=== PATIENT | male | born 1945 | race Caucasian/White ===

== ENCOUNTER 2025-01-22 06:21 | Outpatient (CLI) | payer MEDICARE, OTHER, SELFPAY ==
--- OUTSIDE RECORDS SUMMARY | 2024-09-23 06:45 | XMS_ITS | Encounter Summary ---
Author Name [facility] [place] [facility] [place] Address [address] [place] [id number] Support Name Relationship Address Phone ROLDANROELPEMA Next of Kin [address] [place] [address] ROEL ROLDAN Emergency Contact [address] [place] [address] Insurance Providers: All historical and current Section Date Range: From patient's date of to the date document was created. This section includes the names of all active insurance providers for the patient. Insurance Provider Type of Coverage Plan Name Start of Policy Coverage End of Policy Coverage Group Number Member ID Insurance Provider's Telephone Number Policy Betacnourt's Name Patient's Relationship to Policy Betancourt MEDICARE (WNR) MEDICARE (M) PART A Aug 05, 2010 PART A [id number] [phone] Senthil ROLDAN EOR[place] PATIENT MEDICARE (WNR) MEDICARE (M) PART B Aug 05, 2010 PART B [id number] [phone] Senthil ROLDAN EORG PATIENT MEDICARE (WNR) MEDICARE (M) PART A Aug 05, 2010 PART A [id number] [phone] Senthil ROLDAN EOR[place] PATIENT MEDICARE (WNR) MEDICARE (M) PART B Aug 05, 2010 PART B [id number] [phone] Senthil ROLDAN PATIENT Selected Encounter This section includes the information on record at [place] for the Encounter. Date/Time Encounter Type Encounter Description Reason Provider Source Sep 23, 2024 11:45 AM HEARING AID FITTING/CHECKING AUDIOLOGY ICD-10-CM Z01.118 Encntr for exam of ears and hearing w oth abnormal findings BERT TEJEDA [facility] Encounter Template Text not used by [place] Assessments - Encounter Diagnoses This section includes the primary and secondary diagnoses documented for the Encounter. Date/Time Primary/Secondary Diagnosis Diagnosis Name Provider Source Sep 23, 2024 12:53 PM PRIMARY Encntr for exam of ears and hearing w oth abnormal findings BERT TEJEDA [facility] Sep 23, 2024 12:53 PM SECONDARY Encounter for fitting and adjustment of hearing aid BERT TEJEDA [facility] Sep 23, 2024 12:53 PM SECONDARY Sensorineural hearing loss, bilateral BERT TEJEDA [facility] Sep 23, 2024 12:53 PM SECONDARY Tinnitus, bilateral [facility] Plan of Treatment: Future Appointments (+ 6 months) and Future Tests (+/- 45 days) The Plan of Treatment section includes future care activities for the patient from all [place] [facility] This section includes future appointments and future orders which are active, pending or scheduled. Future Appointments This section includes appointments that were scheduled to occur 6 months from the date of the Encounter, up to a maximum of 20 appointments. The data comes from all [place] treatment facilities. Appointment Date/Time Appointment Type Appointme nt Facility Name Oct 19, 2024 10:45 AM AMBULATORY - SURGERY [facility] Social History: Smoking Status (Most current) and Tobacco Use (All prior to encounter date) This section includes the most current, and the historical, smoking and tobacco- related health factors from the [place] facility where the Encounter took place. Current Smoking Status This section includes the most current smoking, or tobacco-related health factor, from the [place] facility where the Encounter took place. Date/Time Current Smoking Status Comment Facil ity May 27, 2014 09:10 AM FORMER TOBACCO USER 7Y OR GREATE R [facility] Encounter Notes: All associated encounter notes This section contains the clinical notes associated to the Encounter. Date/Time Encounter Note(s) Provider Source Sep 23, 2024 12:57 PM SUICIDE PREVENTION RISK ASSESSMENT SCREENING NOTE: LOCAL TITLE: [place] SCREENING NOTE STANDARD TITLE: SUICIDE PREVENTION RISK ASSESSMENT SCREENING NOT DATE OF NOTE: SEP 23, 2024@12:57 ENTRY DATE: SEP 23, 2024@12:57:30 AUTHOR: BERT TEJEDA EXP COSIGNER: URGENCY: STATUS: COMPLETED C-SSRS Screening Charles-Suicide Severity Rating Scale (C-SSRS Screener) 1. Over the past month, have you wished you were or wished you could go to sleep and not wake up? No 2. Over the past month, have you had any actual thoughts of killing yourself? No 3. Over the past month, have you been thinking about how you might do this? Response not required due to responses to other questions. 4. Over the past month, have you had these thoughts and had some intention of acting on them? Response not required due to responses to other questions. 5. Over the past month, have you started to work out or worked out the details of how to kill yourself? Response not required due to responses to other questions. 6. If yes, at any time in the past month did you intend to carry out this plan? Response not required due to responses to other questions. 7. In your lifetime, have you ever done anything, started to do anything, or prepared to do anything to end your life (for example, collected pills, obtained a gun, gave away valuables, went to the roof but didn't jump)? No 8. If YES, was this within the past 3 months? Response not required due to responses to other questions. /linda/ JUAN M BASSETT STAFF FOOT AND ANKLE SURGEON Signed: 09/23/2024 12:57 BERT TEJEDA [facility] Sep 23, 2024 07:04 AM AUDIOLOGY NOTE: LOCAL TITLE: AUDIOLOGY CLINIC NOTE STANDARD TITLE: AUDIOLOGY NOTE DATE OF NOTE: SEP 23, 2024@07:04 ENTRY DATE: SEP 23, 2024@07:04:03 AUTHOR: BERT TEJEDA EXP COSIGNER: URGENCY: STATUS: COMPLETED SUBJECT: HAE + Service AUDIOLOGY CLINIC NOTE Has ADDENDA DIAGNOSIS: Encounter for examination of ears and hearing Bilateral Sensorineural Hearing Loss Bilateral Tinnitus REASON FOR VISIT: THERAPEUTIC:HEARING AID EVALUATION, 60 minutes: was seen in the clinic today for a hearing evaluation, tympanometry, hearing aid repair/modification x4 and hearing aid programming. The was last seen in this clinic on 01/08/2022. The is Service Connected for Tinnitus. The is not Service Connected for Hearing Loss. Peck was unaccompanied. The wears the following hearing aids: HEARING AIDS (Right/Left) fit : 01/08/2022 Make: Sarah Model: Audeo P90-RT ONEL Serial Numbers R/L: [id number] / [id number] Rolling Chair Pusher/Slim Tube Size: 2S Dome/Earmold: medium open domes HEARING AIDS - BACK UP fit: 07/12/2014 PHONAK AUDEO Q90-312 ONEL R [id number] [place] PHONAK AUDEO Q90-312 ONEL L [id number] [place] HISTORY: - Peck reports his left P90-RT device won't charge. His right P90 device is weak. - arrived wearing his Q90-312 ONEL devices and reports they are both weak. PROCEDURES: OTOSCOPY Bilaterally: Free of excessive cerumen. Normal appearing TM's and canals. TYMPANOMETRY: RIGHT EAR: Type: A Pressure: Normal Compliance: Normal Volume: Normal LEFT EAR: Type: A Pressure: Normal Compliance: Normal Volume: Normal AUDIOMETRICS: Air conduction, Bone conduction, Speech testing Transducer: Circumaural headphones Reliability: good RIGHT EAR (Hz) 250 046 078 8676 1500 2000 3000 4000 6000 8000 Air: see Audiogram display under Tools->Audiology->ROES or see DAINA database. Bone: see Audiogram display under Tools->Audiology->ROES or see DAINA database. LEFT EAR (Hz) 250 353 262 3351 1500 2000 3000 4000 6000 8000 Air: see Audiogram display under Tools->Audiology->ROES or see DAINA database. Bone: see Audiogram display under Tools->Audiology->ROES or see DAINA database. - All thresholds are in dB HL * = Masked Threshold SPEECH RECOGNITION THRESHOLD (SRT): Spondees Right: 40 dB HL Left: 45 dB HL Pure tone results were consistent with speech information receptionist thresholds. WORD RECOGNITION: Recorded/NU-6 word list Right Ear: 92% Level: 80* dB Left Ear: 80% Level: 85* dB Left Ear: 80% Level: 80* dB SUMMARY: RIGHT EAR: Mild sloping to profound sensorineural hearing loss from 250-8000 Hz with normal speech comprehension. Tympanometry reflects normal ear canal volume and tympanic membrane mobility. LEFT EAR: Normal hearing at 250 Hz, sloping from a mild to profound sensorineural hearing loss from 500-8000 Hz with mildly impaired speech comprehension. Tympanometry reflects normal ear canal volume and tympanic membrane mobility. HEARING AID REPAIR/MODIFICATION (x2): (Serial #: [id number] / [id number]) - Both hearing aids are cleaned and checked today. - Right aid weak, left aid will not charge. It blinks green then red when placed in the installation service representative. - Both receivers were replaced. Medium open domes were replaced with small vented domes. - The left aid would not connect to the software. - Both aids were sent in for repair to have all the components replaced. HEARING AID REPAIR/MODIFICATION (x2): Serial #: ([id number]) - Both hearing aids are cleaned and checked today. - Both aids are weak. Both receivers were replaced. - Open domes were replaced with closed domes. - Microphone ports were cleaned out. HEARING AID REPROGRAMMING: (Serial #: [id number]) - Both hearing aids are connected to the fitting software today. - Acoustic parameters verified. - Hearing aids are reprogrammed based on prescriptive targets derived from the results of today's hearing evaluation. - Feedback calibration is ran. - Peck reports the hearing aids sound clear and comfortable after these changes. PLAN: - Peck will be scheduled for a 60-minute hearing aid fitting appointment to fit repaired aids, re-program, and run real ear measures. - Regular follow up recommended to monitor for changes in hearing, or as medically indicated. - is in agreement with this plan. Tech note: Hold repaired hearing aids in clinic for 's scheduled appointment. /linda/ JUAN M BASSETT STAFF FOOT AND ANKLE SURGEON Signed: 09/23/2024 12:53 10/02/2024 ADDENDUM STATUS: COMPLETED HOLDING REPAIRED HEARING AIDS ON ABC FOR APPT 10/19 /linda/ DEBRA [facility] TELECOMMUNICATIONS SUPPORT Signed: 10/02/2024 11:02 /linda/ Jason HILLMAN, [facility]-A CLINICAL/COCHLEAR IMPLANT FOOT AND ANKLE SURGEON Cosigned: 10/02/2024 17:46 BERT TEJEDA [facility]
--- OUTSIDE RECORDS SUMMARY | 2024-10-19 05:45 | XMS_ITS | Encounter Summary ---
Author Name [facility] [place] [place] [facility] [place] Address [address] [place] [address] Support Name Relationship Address Phone ROLDANROELPEMA Next of Kin [address] [place] [address] JAMAR ROEL SANTOS Emergency Contact [address] [place] [address] Insurance Providers: All historical and current Section Date Range: From patient's date of to the date document was created. This section includes the names of all active insurance providers for the patient. Insurance Provider Type of Coverage Plan Name Start of Policy Coverage End of Policy Coverage Group Number Member ID Insurance Provider's Telephone Number Policy Betancourt's Name Patient's Relationship to Policy Betancourt MEDICARE (WNR) MEDICARE (M) PART A Aug 05, 2010 PART A [id number] [phone] Senthil ROLDAN EOR[place] PATIENT MEDICARE (WNR) MEDICARE (M) PART B Aug 05, 2010 PART B [id number] [phone] Senthil ROLDAN [place] PATIENT MEDICARE (WNR) MEDICARE (M) PART A Aug 05, 2010 PART A [id number] [phone] Senthil ROLDAN [place] PATIENT MEDICARE (WNR) MEDICARE (M) PART B Aug 05, 2010 PART B [id number] Senthil ROLDAN EORSenthil PATIENT Selected Encounter This section includes the information on record at [place] for the Encounter. Date/Time Encounter Type Encounter Description Reason Provider Source Oct 19, 2024 10:45 AM CONFORMITY EVALUATION AUDIOLOGY ICD-10-CM Z46.1 Encounter for fitting and adjustment of hearing aid BERT TEJEDA Encounter Template Text not used by [place] Assessments - Encounter Diagnoses This section includes the primary and secondary diagnoses documented for the Encounter. Date/Time Primary/Secondary Diagnosis Diagnosis Name Provider Source Oct 19, 2024 11:02 AM PRIMARY Encounter for fitting and adjustment of hearing aid BERT TEJEDA [facility] Oct 19, 2024 11:02 AM SECONDARY Sensorineural hearing loss, bilateral BERT TEJEDA [facility] Oct 19, 2024 11:02 AM SECONDARY Tinnitus, bilateral BERT TEJEDA [facility] Social History: Smoking Status (Most current) and Tobacco Use (All prior to encounter date) This section includes the most current, and the historical, smoking and tobacco- related health factors from the [place] facility where the Encounter took place. Current Smoking Status This section includes the most current smoking, or tobacco-related health factor, from the [place] facility where the Encounter took place. Date/Time Current Smoking Status Comment Facil ity May 27, 2014 09:10 AM FORMER TOBACCO USER 7Y OR GREATE R [facility] Encounter Notes: All associated encounter notes This section contains the clinical notes associated to the Encounter. Date/Time Encounter Note(s) Provider Source Oct 19, 2024 07:03 AM AUDIOLOGY NOTE: LOCAL TITLE: AUDIOLOGY CLINIC NOTE STANDARD TITLE: AUDIOLOGY NOTE DATE OF NOTE: OCT 19, 2024@07:03 ENTRY DATE: OCT 19, 2024@07:03:53 AUTHOR: BERT TEJEDA EXP COSIGNER: URGENCY: STATUS: COMPLETED SUBJECT: LEE Service DIAGNOSIS: Encounter for fitting and adjustment of hearing aid Sensorineural Hearing Loss, Bilateral Tinnitus, Bilateral REASON FOR VISIT: Hearing aid check/2 ears, hearing aid programming, and conformity evaluation. The was last seen in this clinic on 09/23/2024. The is Service Connected for Tinnitus. The is not Service Connected for Hearing Loss. [place] was unaccompanied. The wears the following hearing aids: HEARING AIDS (Right/Left) fit : 01/08/2022 Make: Phonak Model: Audeo P90-RT ONEL Serial Numbers R/L: [id number] / [id number] Media Traffic Manager/Slim Tube Size: 2S Dome/Earmold: Small vented domes HEARING AIDS - BACK UP fit: 07/12/2014 PHONAK AUDEO Q90-312 ONEL R [id number] [place] DEEPTHI MANDUJANO Q90-312 ONEL L [id number] [place] Concerns reported today by : Right aid SN: reprogram P90-RT devices following repair Left aid SN: reprogram P90-RT devices following repair PROCEDURES: OTOSCOPY Bilaterally: Free of excessive cerumen. Normal appearing TM's and canals. Hearing Aid check, 2 ears: (Serial #: [id number] / [id number]) - Biologic listening check revealed both hearing aids are working normally following MFR repair. HEARING AID REPROGRAMMING: (Serial #: [id number] / [id number]) - Both hearing aids are connected to the fitting software today. - Firmware updated, AU. - Hearing aids are reprogrammed based on prescriptive targets derived from the results of 's latest hearing examination. today's hearing evaluation. - Feedback calibration is ran. - reports the hearing aids sound clear and comfortable after these changes. - Real-ear measures (conformity evaluation) were completed (NAL-NL2). Gain and output were adjusted to ensure audibility and comfort. Loudness intolerance was measured using a 90 dB MPO tone sweep and the patient was able to tolerate the output of the hearing device(s). Veterans subjective impressions were considered while adjusting the hearing aids. Balance, comfort, and localization were verified. PLAN: - Regular follow up recommended to monitor for changes in hearing, or as medically indicated. - RTC for servicing of amplification as needed. Patient is in agreement with this plan. /linda/ JUAN M BASSETT STAFF INTERN ARCHITECT Signed: 10/19/2024 11:02 BERT TEJEDA [facility]
--- OUTSIDE RECORDS SUMMARY | 2025-01-22 06:54 | XMS_ITS | Continuity of Care Document ---
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 facilities. It does not include entries that were removed or entered in error. Problem Status Onset Date Problem Type Date of Resolution Comments Source Carcinoma of prostate Active Condition [facility] Diabetes mellitus Active Condition [facility] Essential hypertension Active Condition [facility] Tinnitus Active Condition [facility] Diagnosis: ICD-10-CM Z46.1 Encounter for fitting and adjustment of hearing aid Active Diagnosis [facility] Diagnosis: ICD-10-CM Z01.118 Encntr for exam of ears and hearing w oth abnormal findings Active Diagnosis [facility] Medications Combined list of outpatient medications from Department [facility] and [facility] facilities.Medications provided include 1) outpatient medications from the last 15 months, and 2) patient-reported medications. Medication Details Route Status Patient Instructions Prescription Expires Prescription Number Last Dispense Date Ordering Provider Order Date Order Qty Source AMLODIPINE BESYLATE (AMLODIPINE BESYLATE), 10 MG, TABLET, ORAL, [employer], 1000 ea. BOTTLE Active [id number] 2023 90 Pharmac y Data Transac tion Service Facilit y AMLODIPINE BESYLATE 10MG TAB TAKE ONE TABLET BY MOUTH EVERY DAY ORAL ACTIVE MILAD LEMUS 2013 [facility] ASPIRIN 81MG TAB,EC TAKE ONE TABLET BY MOUTH EVERY DAY ORAL ACTIVE MILAD LEMUS 2013 [facility] ATENOLOL 25MG TAB TAKE ONE TABLET BY MOUTH EVERY DAY ORAL ACTIVE MILAD LEMUS 2013 [facility] FISH OIL 1000MG (500MG DHA/EPA) CAP,ORAL TAKE 1 CAPSULE BY MOUTH EVERY DAY ORAL ACTIVE MILAD LEMUS 2013 [facility] HYDROCHLORO THIAZIDE 25MG TAB TAKE ONE-HALF TABLET BY MOUTH TWICE A DAY ORAL ACTIVE MILAD LEMUS 2013 [facility] METFORMIN HCL 1000MG TAB TAKE ONE-HALF TABLET BY MOUTH EVERY DAY ORAL ACTIVE MILAD LEMUS 2013 [facility] MULTIVITAMI NS CAP/TAB TAKE ONE TABLET BY MOUTH EVERY DAY ORAL ACTIVE MILAD LEMUS 2013 [facility] QUINAPRIL HCL 40MG TAB TAKE ONE TABLET BY MOUTH EVERY DAY ORAL ACTIVE MILAD LEMUS 2013 [facility] Allergies, Adverse Reactions, Alerts Combined list of allergies from Department [facility] and [facility] facilities. It does not include entries that were removed or entered in error. Substance Category Reaction Severity Reaction type Status Date Reported Comments Source AMOXICILLIN Propensity to adverse reactions to drug (finding) Itching active 4 [employer] PENICILLINS, AMINO DERIVATIVES Drug allergy (disorder) Pruritus active 4 [facility] Immunizations Combined list of available immunizations from the Department of [facility] and [facility] facilities. Immunization Series Date Given Administered By Site Reaction Lot Number CVX Code Drug Piccolo Mechanic Status Comments Source COVID-19 (PFIZER), MRNA, LNP-S, PF, 30 MCG/0.3 ML DOSE 3 2020 208 complet ed PFR; [id number]; 1 [facility] INFLUENZA, INJECTABLE, QUADRIVALENT, PRESERVATIVE FREE 2020 150 complet ed [facility] COVID-19 (PFIZER), MRNA, LNP-S, PF, 30 MCG/0.3 ML DOSE 2 2020 208 complet ed PFR; [id number]; 1 [facility] COVID-19 (PFIZER), MRNA, LNP-S, PF, 30 MCG/0.3 ML DOSE 1 2020 208 complet ed PFR; [id number]; 1 [facility] influenza, high-dose, quadrivalent 2019 [place], () Not Given influenza , high-dose , quadrival ent [facility] influenza, recombinant, quadrivalent, injectable, preservative free 2018 [place] () Not Given influenza , recombina nt, quadrival ent,injec table, preservat jessi free [facility] INFLUENZA, HIGH DOSE SEASONAL 2015 135 complet ed [facility] INFLUENZA, SEASONAL, INJECTABLE, PRESERVATIVE FREE 2014 140 complet ed [facility] anthrax vaccine 5 2003 Unknown, Provider [id number] [employer] ([facility]) complet ed anthrax vaccine [facility] influenza virus vaccine, whole virus 1 2002 Unknown, Provider [id number] Sanofi Pasteur ([facility]) complet ed influenza virus vaccine, whole virus [facility] tuberculin skin test; purified protein derivative solution, intradermal 1 2002 Unknown, Provider [id number] Sanofi Pasteur ([facility]) complet tuberculi n skin test; purified protein derivativ e solution, intraderm al [facility] anthrax vaccine 4 2002 Unknown, Provider [id number] [employer] ([facility]) complet ed anthrax vaccine DoD typhoid vaccine, parenteral, other than acetone-kille d, dried 1 2002 Unknown, Provider [id number] Sanofi Pasteur ([facility]) complet ed typhoid vaccine, parentera l, other than acetone-k illed, dried DoD hepatitis B vaccine, adult dosage 3 2002 Unknown, Provider [id number] Merck (MSD) complet ed hepatitis B vaccine, adult dosage DoD anthrax vaccine 3 2002 Unknown, Provider [id number] [employer] ([facility]) complet ed anthrax vaccine DoD anthrax vaccine 2 2002 Unknown, Provider [id number] [facility] [employer] ([facility]) complet ed anthrax vaccine DoD vaccinia (smallpox) vaccine, diluted 1 2002 Unknown, Provider [id number] Destinee ([facility]) complet ed vaccinia (smallpox ) vaccine, diluted DoD anthrax vaccine 1 2002 Unknown, Provider [id number] [employer] ([facility]) complet ed anthrax vaccine [facility] hepatitis B vaccine, adult dosage 2 2001 Unknown, Provider [id number] Merck (MSD) complet ed hepatitis B vaccine, adult dosage [facility] influenza virus vaccine, whole virus 1 2001 Unknown, Provider [id number] [employer] ([facility]) complet ed influenza virus vaccine, whole virus DoD tuberculin skin test; purified protein derivative solution, intradermal 1 2001 Unknown, Provider [id number] Sanofi Pasteur ([facility]) complet ed tuberculi n skin test; purified protein derivativ e solution, intraderm al DoD hepatitis B vaccine, adult dosage 1 2001 Unknown, Provider [id number] Merck (MSD) complet ed hepatitis B vaccine, adult dosage DoD tuberculin skin test; purified protein derivative solution, intradermal 1 2001 Unknown, Provider [id number] Sanofi Pasteur ([facility]) complet ed tuberculi n skin test; purified protein derivativ e solution, intraderm al DoD meningococcal polysaccharid e vaccine (MPSV4) 1 2001 Unknown, Provider [id number] Benito (CON) complet ed meningoco ccal polysacch aride vaccine (MPSV4) DoD influenza virus vaccine, whole virus 1 2000 Unknown, Provider [id number] 16 Sanofi Pasteur ([facility]) complet ed influenza virus vaccine, whole virus DoD tuberculin skin test; purified protein derivative solution, intradermal 1 2000 Unknown, Provider [id number] 96 [place] (CON) complet ed tuberculi n skin test; purified protein derivativ e solution, intraderm al DoD typhoid vaccine, parenteral, other than acetone-kille d, dried 1 2000 Unknown, Provider [id number] Sanofi Pasteur ([facility]) complet ed typhoid vaccine, parentera l, other than acetone-k illed, dried DoD typhoid Vi capsular polysaccharid e vaccine 1 2000 Unknown, Provider [id number] () complet ed typhoid Vi capsular polysacch aride vaccine DoD influenza virus vaccine, whole virus 1 2000 Unknown, Provider [id number] 16 [place] (JANIE) complet ed influenza virus vaccine, whole virus DoD yellow fever vaccine 1 1999 Unknown, Provider [id number] Sanofi Pasteur ([facility]) complet ed yellow fever vaccine DoD hepatitis A vaccine, adult dosage 2 1999 Unknown, Provider [id number] Merck (MSD) complet ed hepatitis A vaccine, adult dosage DoD influenza virus vaccine, whole virus 1 1998 Unknown, Provider 16 Benito (CON) complet ed influenza virus vaccine, whole virus DoD hepatitis A vaccine, adult dosage 1 1997 Unknown, Provider [id number] Merck (MSD) complet ed hepatitis A vaccine, adult dosage DoD influenza virus vaccine, whole virus 1 1997 Unknown, Provider [id number] 16 Benito (CON) complet ed influenza virus vaccine, whole virus DoD tetanus and diphtheria toxoids, adsorbed, preservative free, for adult use (2 Lf of tetanus toxoid and 2 Lf of diphtheria toxoid) 1 1997 Unknown, Provider [id number] Sanofi Pasteur ([facility]) complet ed tetanus and diphtheri a toxoids, adsorbed, preservat jessi free, for adult use (2 Lf of tetanus toxoid and 2 Lf of diphtheri a toxoid) DoD influenza virus vaccine, whole virus 1 1996 Unknown, Provider [id number] 16 Benito (CON) complet ed influenza virus vaccine, whole virus DoD typhoid vaccine, live, oral 1 1994 Unknown, Provider [id number] Benito (CON) complet ed typhoid vaccine, live, oral DoD yellow fever vaccine 1 1989 Unknown, Provider [id number] 37 Benito (CON) complet ed yellow fever vaccine DoD tetanus and diphtheria toxoids, adsorbed, preservative free, for adult use (2 Lf of tetanus toxoid and 2 Lf of diphtheria toxoid) 1 1987 Unknown, Provider 09 Unknown (UNK) complet ed tetanus and diphtheri a toxoids, adsorbed, preservat jessi free, for adult use (2 Lf of tetanus toxoid and 2 Lf of diphtheri a toxoid) DoD trivalent poliovirus vaccine, live, oral 1 1965 Unknown, Provider 02 Unknown (UNK) complet ed trivalent polioviru s vaccine, live, oral DoD Encounters Combined list of: 1) Encounters from Department of Veterans Affairs facilities going backup to the last 18 months, not all VA inpatient encounters are included; 2) Encounters from the Department of Defense facilities going backup to 280 months. Location Location Details Encounter Type Encounter Number Reason For Visit Attending Provider ADM Date DC Date Status Disposition Source [place] [facility] HEAR[facility] FITTING/CH ECKING [id number] Diagnos is: ICD-10- CM Z01.118 Encntr for exam of ears and hearing w oth abnorma l finding s LANG,RENUKA JASPREET VELEZ 09/23 [facility] [place] [facility] CONFORMITY EVALUATION [id number] Diagnos is: ICD-10- CM Z46.1 Encount er for fitting and adjustm ent of hearing aid RENUKA TEJEDA JASPREET VELEZ 10/19 [facility] Social History Combined list of available smoking, tobacco, and other social history from Department of Defense and Veterans Affairs facilities. Social History Type Response Date Comment Sourc e Tobacco smoking status NHIS FORMER TOBACCO USER 7Y OR GREATER 05/27/2014 [facility] This section is an empty social history section. DoD
--- OUTSIDE RECORDS SUMMARY | 2025-01-22 06:54 | XMS_ITS | Continuity of Care Document ---
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 It does not include entries that were removed or entered in error. Problem Status Onset Date Problem Type Date of Resolution Comments Source Carcinoma of prostate Active Condition [facility] Diabetes mellitus [facility] Ess[facility] hypertension Active Condition [facility] Tinnitus Active Condition [facility] Diagnosis: ICD-10-CM Z46.1 Encounter for fitting and adjustment of hearing aid Active Diagnosis [facility] Diagnosis: ICD-10-CM Z01.118 Encntr for exam of ears and hearing w oth abnormal findings Active Diagnosis [facility] Medications Combined list of outpatient medications from Department [facility] and [facility] facilities.Medications provided include 1) outpatient medications from the last 15 months, and 2) patient-reported medications. Medication Details Route Status Patient Instructions Prescription Expires Prescription Number Last Dispense Date Ordering Provider Order Date Order Qty Source AMLODIPINE BESYLATE (AMLODIPINE BESYLATE), 10 MG, TABLET, ORAL, [employer], 1000 ea. BOTTLE Active [id number] 4 2023 90 Pharmac y Data Transac tion Service Facilit y AMLODIPINE BESYLATE 10MG TAB TAKE ONE TABLET BY MOUTH EVERY DAY ORAL ACTIVE MILAD LEMUS 2013 [facility] ASPIRIN 81MG TAB,EC TAKE ONE TABLET BY MOUTH EVERY DAY ORAL ACTIVE MILAD LEMUS 2013 [facility] ATENOLOL 25MG TAB TAKE ONE TABLET BY MOUTH EVERY DAY ORAL ACTIVE MILAD LEMUS 2013 [facility] FISH OIL 1000MG (500MG DHA/EPA) CAP,ORAL TAKE 1 CAPSULE BY MOUTH EVERY DAY ORAL ACTIVE MILAD LEMUS 2013 [facility] HYDROCHLORO THIAZIDE 25MG TAB TAKE ONE-HALF TABLET BY MOUTH TWICE A DAY ORAL ACTIVE MILAD LEMUS 2013 [facility] METFORMIN HCL 1000MG TAB TAKE ONE-HALF TABLET BY MOUTH EVERY DAY ORAL ACTIVE MILAD LEMUS 2013 [facility] MULTIVITAMI NS CAP/TAB TAKE ONE TABLET BY MOUTH EVERY DAY ORAL ACTIVE MILAD LEMUS 2013 [facility] QUINAPRIL HCL 40MG TAB TAKE ONE TABLET BY MOUTH EVERY DAY ORAL ACTIVE MILAD LEMUS 2013 [facility] Allergies, Adverse Reactions, Alerts Combined list of allergies from Department of [facility] and [facility] facilities. It does not include entries that were removed or entered in error. Substance Category Reaction Severity Reaction type Status Date Reported Comments Source AMOXICILLIN Propensity to adverse reactions to drug (finding) Itching active 4 [facility] PENICILLINS, AMINO DERIVATIVES Drug allergy (disorder) Pruritus active 4 [facility] Immunizations Combined list of available immunizations from the Department of [facility] and [facility] facilities. Immunization Series Date Given Administered By Site Reaction Lot Number CVX Code Drug Spectroscopist Status Comments Source COVID-19 (PFIZER), MRNA, LNP-S, PF, 30 MCG/0.3 ML DOSE 3 2020 208 complet ed PFR; [id number]; 1 [facility] INFLUENZA, INJECTABLE, QUADRIVALENT, PRESERVATIVE FREE 2020 150 complet ed [facility] COVID-19 (PFIZER), MRNA, LNP-S, PF, 30 MCG/0.3 ML DOSE 2 2020 208 complet ed PFR; [id number]; 1 [facility] COVID-19 (PFIZER), MRNA, LNP-S, PF, 30 MCG/0.3 ML DOSE 1 2020 208 complet ed PFR; [id number]; 1 [facility] influenza, high-dose, quadrivalent 2019 WIL[place], () Not Given influenza , high-dose , quadrival ent [facility] influenza, recombinant, quadrivalent, injectable, preservative free 2018 [place] () Not Given influenza , recombina nt, quadrival ent,injec table, preservat jessi free [facility] INFLUENZA, HIGH DOSE SEASONAL 2015 135 complet ed [facility] INFLUENZA, SEASONAL, INJECTABLE, PRESERVATIVE FREE 2014 140 complet ed [facility] anthrax vaccine 5 2003 Unknown, Provider [id number] [employer] ([facility]) complet ed anthrax vaccine [facility] influenza virus vaccine, whole virus 1 2002 Unknown, Provider [id number] Sanofi Pasteur ([facility]) complet ed influenza virus vaccine, whole virus [facility] tuberculin skin test; purified protein derivative solution, intradermal 1 2002 Unknown, Provider [id number] Sanofi Pasteur ([facility]) complet tuberculi n skin test; purified protein derivativ e solution, intraderm al [facility] anthrax vaccine 4 2002 Unknown, Provider [id number] [employer] ([facility]) complet ed anthrax vaccine DoD typhoid vaccine, parenteral, other than acetone-kille d, dried 1 2002 Unknown, Provider [id number] Sanofi Pasteur ([facility]) complet ed typhoid vaccine, parentera l, other than acetone-k illed, dried DoD hepatitis B vaccine, adult dosage 3 2002 Unknown, Provider [id number] Merck (MSD) complet ed hepatitis B vaccine, adult dosage DoD anthrax vaccine 3 2002 Unknown, Provider [id number] [employer] ([facility]) complet ed anthrax vaccine DoD anthrax vaccine 2 2002 Unknown, Provider [id number] [facility] [employer] ([facility]) complet ed anthrax vaccine DoD vaccinia (smallpox) vaccine, diluted 1 2002 Unknown, Provider [id number] [employer] (WAL) complet ed vaccinia (smallpox ) vaccine, diluted DoD anthrax vaccine 1 2002 Unknown, Provider [id number] [employer] ([facility]) complet ed anthrax vaccine [facility] hepatitis B vaccine, adult dosage 2 2001 Unknown, Provider [id number] Merck (MSD) complet ed hepatitis B vaccine, adult dosage [facility] influenza virus vaccine, whole virus 1 2001 Unknown, Provider [id number] [employer] ([facility]) complet ed influenza virus vaccine, whole virus DoD tuberculin skin test; purified protein derivative solution, intradermal 1 2001 Unknown, Provider [id number] Sanofi Pasteur ([facility]) complet ed tuberculi n skin test; purified protein derivativ e solution, intraderm al DoD hepatitis B vaccine, adult dosage 1 2001 Unknown, Provider [id number] Merck (MSD) complet ed hepatitis B vaccine, adult dosage DoD tuberculin skin test; purified protein derivative solution, intradermal 1 2001 Unknown, Provider [id number] 96 Sanofi Pasteur ([facility]) complet ed tuberculi n skin test; purified protein derivativ e solution, intraderm al DoD meningococcal polysaccharid e vaccine (MPSV4) 1 2001 Unknown, Provider [id number] Benito (CON) complet ed meningoco ccal polysacch aride vaccine (MPSV4) DoD influenza virus vaccine, whole virus 1 2000 Unknown, Provider [id number] 16 Sanofi Pasteur ([facility]) complet ed influenza virus vaccine, whole virus DoD tuberculin skin test; purified protein derivative solution, intradermal 1 2000 Unknown, Provider [id number] 96 [place] (CON) complet ed tuberculi n skin test; purified protein derivativ e solution, intraderm al DoD typhoid vaccine, parenteral, other than acetone-kille d, dried 1 2000 Unknown, Provider [id number] Sanofi Pasteur ([facility]) complet ed typhoid vaccine, parentera l, other than acetone-k illed, dried DoD typhoid Vi capsular polysaccharid e vaccine 1 2000 Unknown, Provider [id number] () complet ed typhoid Vi capsular polysacch aride vaccine DoD influenza virus vaccine, whole virus 1 2000 Unknown, Provider [id number] 16 [place] (JANIE) complet ed influenza virus vaccine, whole virus DoD yellow fever vaccine 1 1999 Unknown, Provider [id number] Sanofi Pasteur ([facility]) complet ed yellow fever vaccine DoD [...] vaccine, whole virus 1 1997 Unknown, Provider [id number] 16 Ben[place] (CON) complet ed influenza virus vaccine, whole virus DoD tetanus and diphtheria toxoids, adsorbed, preservative free, for adult use (2 Lf of tetanus toxoid and 2 Lf of diphtheria toxoid) 1 1997 Unknown, Provider [id number] Sanofi Pasteur ([facility]) complet ed tetanus and diphtheri a toxoids, adsorbed, preservat jessi free, for adult use (2 Lf of tetanus toxoid and 2 Lf of diphtheri a toxoid) DoD influenza virus vaccine, whole virus 1 1996 Unknown, Provider [id number] Benito (CON) complet ed influenza virus vaccine, whole virus DoD typhoid vaccine, live, oral 1 1994 Unknown, Provider [id number] Benito (CON) complet ed typhoid vaccine, live, oral DoD yellow fever vaccine 1 1989 Unknown, Provider [id number] [place] (CON) complet ed yellow fever [...] [facility] [id number] Diagnos is: ICD-10- CM Z01.118 Encntr for exam of ears and hearing w oth abnorma l finding s LANG,RENUKA JASPREET VELEZ 09/23 [facility] [place] [facility] CONFORMITY EVALUATION [id number] Diagnos is: ICD-10- CM Z46.1 Encount er for fitting and adjustm ent of hearing aid RENUKA TEJEDA JASPREET VELEZ 10/19 [facility] Social History Combined list of available smoking, tobacco, and other social history from Department of Defense and Veterans Affairs facilities. Social History Type Response Date Comment Sourc e Tobacco smoking status NHIS FORMER TOBACCO USER 7Y OR GREATER 05/27/2014 [facility] This section is an empty social history section. DoD
--- OUTSIDE RECORDS SUMMARY | 2025-01-22 07:31 | XMS_ITS | Data Portability ---
Author Organization [facility], [facility] Address [address] [place] [address] Care Team Providers [facility] Assistant Director Name Role Phone JERSEY CONTRERAS Primary Care Provider [phone] Assessment Encounter Date Assessment Date Assessment LastModified by Organization Details LastModified Time 02/01/2020 02/01/2020 [id number] 6 cancer of the prostate on observation. He is doing well. Recent MRI low risk. PSA rising slightly - will follow. antonia Not available 03/01/2020 06:32:00 07/14/2020 07/14/2020 cT1c Jin 6 cancer of the prostate on observation. Stable recheck 6 months. antonia Not available 07/14/2020 11:24:20 01/12/2021 01/12/2021 He has a low-grade low risk cancer of the prostate that is stable on observation. PSA is stable here today. I communicated with him by phone about that test result. We will see him in 6 months. antonia Not available 01/12/2021 17:57:53 07/13/2021 07/13/2021 Mr. Boyle has a clinical T1c cancer of the prostate for which he has been on active surveillance for approximately 8 years since 2012. His PSA today is 6.96. I did call and tell his that. He will follow-up in [place] with my partner Dr. Alvarez in 6 months. He is very comfortable with continuing to follow this. Most recent MRI January 2020 showed 100 cc gland, PI-RADS 2. Reviewed. 07/23/2013 L) PROSTATE, LEFT LATERAL BASE, NEEDLE BIOPSY 1. Adenocarcinoma, Jin Grade 3 + Jin Grade 3= 6 2. Total surface area involved: 20% 3. Number of needle biopsy cores involved 1 of 1 4. Perineural invasion: absent 06/14/2015 C) PROSTATE, RIGHT MEDIAL MID, NEEDLE BIOPSY 1. Adenocarcinoma, Jin score 6 (3+3); see note 2. Total surface area involved: 5% 3. Number of needle biopsy cores involved 1 of 1 4. Perineural invasion: absent L) PROSTATE, LEFT LATERAL BASE, NEEDLE BIOPSY 1. Adenocarcinoma, Marietta score 6 (3+3); see note 2. Total surface area involved: <5% 3. Number of needle biopsy cores involved 1 of 1 4. Perineural invasion: absent (He had a daughter who was a medical oncologist who from breast cancer.) antonia Not available 07/13/2021 17:08:26 Plan of Treatment Reminders Order Date Submit Date Provider Last Modified By Organization Details Last Modified Time Details Appointments None recorded. Lab PSA, total + free, serum or plasma 2020 021 [facility], [address], [address], [address], 1 16:22:51 PSA, total + free, serum or plasma 2020 021 [facility], [address], [address], [place], [address], 1 13:36:53 urinalysi s, dipstick 2020 021 [facility], [address], [address], [place], [address], 1 11:44:05 PSA, total + free, serum or plasma 2019 020 [email or web address], [address], [address], [place], [address], 0 18:14:21 Referral None recorded. Procedures None recorded. Surgeries None recorded. Imaging None recorded. Medication Orders None recorded. Patient TargetsNo targets recorded. Patient Instructions Encounter Date Encounter Id Patient Instructions Last Modified By Organization Details Last Modified Time 02/01/2020 [id number] Doing well - MRI PI RADS 2 in January. Last biopsy 2014. If the psa continues to rise then will consider a standard biopsy. [email or web address] Not available 02/01/2020 10:04:14 Reason for Referral None Reported. Results Created Date Observation Date Name Description Value Unit Range Abnormal Flag Note LastModifiedBy Organization Detail LastModifiedTime 02/01/2002/01/2020 PSA, total + free, serum or plasm a PSA, total 7.02 NG/mL 0.00-4 .00 high Not Available [facility] [address] [facility] [address], [place], [address], 02/02/2020 12:44:26 02/01/2002/01/2020 PSA, total + free, serum or plasm a free PSA 1.37 NG/mL 0.00-2 0.00 Not Available [facility] [address] [facility] [address], [place], [address], 02/02/2020 12:44:26 02/01/2002/01/2020 PSA, total + free, serum or plasm a % fpsa 19.5 % Proba bilit y of Prost ate Cance r (For Men with Non-S uspic ious SHERI Resul ts and PSA Betwe en 4 and 10 ng/mL , by Patie nt Age) % Free PSA-- ----- ----- ----- ----- -Ruma ent Age 50 to 64 Years 65 to 75 Years 0.00 to 10.00 %---- ----- 56% 55% 10.01 to 15.00 % ----- --- 24% 35% 15.01 to 20.00 % ----- --- 17% 23% 20.01 to 25.00 % ----- --- 10% 20% > 25.01 % ----- --- 5% 9% Not Available [facility] [address] [facility] [address], [place], [address], 02/02/2020 12:44:26 07/08/20 07/08/2020 PSA, total + free, serum or plasm a PSA 6.34 high Not Available Adilene Marinelli [facility] ~ Imaging Scheduling [address], [place], [address], 07/08/2020 12:54:33 01/13/20 21 01/12/2021 urina lysis , dipst ick color -advantus YELLOW yellow Not Available [facility] [address] [place] [address], [place], [address], 01/12/2021 11:44:04 01/13/20 21 01/12/2021 urina lysis , dipst ick appearance -advantus CLEAR clear Not Available [facility] [place] [facility] [address] [place] [address] [address], [place], [address], 01/12/2021 11:44:04 01/13/20 21 01/12/2021 urina lysis , dipst ick glucose -advantus >=1000 mg/dL negati ve abnormal Not Available [facility] [address] [place] [address], [place], [address], 01/12/2021 11:44:04 01/13/20 21 01/12/2021 urina lysis , dipst ick bilirubin -advantus NEGATI VE negati ve Not Available [facility] [address] [place] [address], [place], [address], 01/12/2021 11:44:04 01/13/20 21 01/12/2021 urina lysis , dipst ick ketones -advantus TRACE mg/dL negati ve abnormal Not Available [facility] [address] [place] [address], [place], [address], 01/12/2021 11:44:04 01/13/20 21 01/12/2021 urina lysis , dipst ick sp. gravity -advantus 1.025 1.010- 1.025 Not Available [facility] [address] [place] [address] [address], [place], [address], 01/12/2021 11:44:04 01/13/20 21 01/12/2021 urina lysis , dipst ick pH -advantus 5.0 5.0-8. 0 Not Available [facility] [address] [place] [address] [address], [place], [address], 01/12/2021 11:44:04 01/13/20 21 01/12/2021 urina lysis , dipst ick protein -advantus NEGATI VE mg/dL negati ve Not Available [facility] [address] [place] [address] [address], [place], [address], 01/12/2021 11:44:04 01/13/20 21 01/12/2021 urina lysis , dipst ick urobilinogen -advantus 0.2 normal Not Available [facility] [address] [place] [address] [address], [place], [address], 01/12/2021 11:44:04 01/13/20 21 01/12/2021 urina lysis , dipst ick nitrites -advantus NEGATI VE negati ve Not Available [facility] [address] [place] [address] [address], [place], [address], 01/12/2021 11:44:04 01/13/20 21 01/12/2021 urina lysis , dipst ick blood -advantus NEGATI VE negati ve Not Available [facility] [address] [place] [address] [address], [place], [address], 01/12/2021 11:44:04 01/13/20 21 01/12/2021 urina lysis , dipst ick leukocytes -advantus NEGATI VE negati ve Not Available [facility] [address] [place] [address] [address], [place], [address], 01/12/2021 11:44:04 01/13/20 21 01/12/2021 urina lysis , dipst ick performed by Alta Ji Not Available [facility] [address] [facility] [address], [place], [address], 01/12/2021 11:44:04 01/13/2001/12/2021 stacey brown , dipst ick total urine volume (mL) 40cc /mL ----- ----- ----- ----- ----- ----- ----- ----- ----- ----- ----- ----- ----- ----- ---- *Annabelle medina note the follo wing minim um quant ities for addit ional urine testi ng: - Atypi cals: 3 mL - Cytol ogy: 20 mL - GC/CH : 2 mL - FISH: 30 mL - Atypi cals w/ GC/CH : 5 mL - Cytol ogy PLUS FISH: 50 mL - Urine Cultu re: 3 mL ----- ----- ----- ----- ----- ----- ----- ----- ----- ----- ----- ----- ----- ----- ---- Not Available [facility] [address] [facility] [address], [place], [address], 01/12/2021 11:44:04 01/13/2001/12/2021 PSA, total + free, serum or plasm a PSA, total 6.58 NG/mL 0.00-4 .00 high Not Available [facility] [address] [facility] [address], [place], [address], 01/12/2021 13:36:53 01/13/2001/12/2021 PSA, total + free, serum or plasm a free PSA 1.32 NG/mL 0.00-2 0.00 Not Available [facility] [address] [facility] [address], [place], [address], 01/12/2021 13:36:53 01/13/20 21 01/12/2021 PSA, total + free, serum or plasm a % fpsa 20.1 % Proba bilit y of Prost ate Cance r (For Men with Non-S uspic ious SHERI Resul ts and PSA Betwe en 4 and 10 ng/mL , by Patie nt Age) % Free PSA-- ----- ----- ----- ----- -Ruma ent Age 50 to 64 Years 65 to 75 Years 0.00 to 10.00 %---- ----- 56% 55% 10.01 to 15.00 % ----- --- 24% 35% 15.01 to 20.00 % ----- --- 17% 23% 20.01 to 25.00 % ----- --- 10% 20% > 25.01 % ----- --- 5% 9% Not Available [facility] [address] [facility] [address], [place], [address], 01/12/2021 13:36:53 07/13/20 21 07/13/2021 PSA TOTAL AND FREE PSA, total 6.96 NG/mL 0.00-4 .00 high Not Available [facility] [address] [facility] [address], [place], [address], 07/13/2021 16:22:51 07/13/20 21 07/13/2021 PSA TOTAL AND FREE free PSA 1.69 NG/mL 0.00-2 0.00 Not Available [facility] [address] [facility] [address], [place], [address], 07/13/2021 16:22:51 07/13/20 21 07/13/2021 PSA TOTAL AND FREE % fpsa 24.3 % Proba bilit y of Prost ate Cance r (For Men with Non-S uspic ious SHERI Resul ts and PSA Betwe en 4 and 10 ng/mL , by Patie nt Age) % Free PSA-- ----- ----- ----- ----- -Ruma ent Age 50 to 64 Years 65 to 75 Years 0.00 to 10.00 %---- ----- 56% 55% 10.01 to 15.00 % ----- --- 24% 35% 15.01 to 20.00 % ----- --- 17% 23% 20.01 to 25.00 % ----- --- 10% 20% > 25.01 % ----- --- 5% 9% Not Available [facility] [address], [place], [address], 07/13/2021 16:22:51 Result Notes None recorded. Problems Name Problem SNOMED Code Status Onset Date Resolution Date Notes Provider Name and Address Organization Details Recorded Time Clinical finding Active 2018 N20.0 : Staghorn calculus Not Available [facility] 0 23:37:55 Malignant neoplasm of prostate 428920953 Active 2014 C61 : Malignant tumor of prostate Not Available [facility] 0 23:37:55 Diabetes mellitus 21089023 Active 2020 Tenisha jernigan [facility] 1 10:43:03 Problem Notes None recorded. Procedures Surgical History Date Name Laterality Status Provider Name and Address Organization Details Recorded Time 01/13/20 21 Blood Draw/FLAVOR ROOM WORKER/PSA RESULTS completed Alta Key [facility] 01/12/2021 11:37:55 05/29/20 19 Cysto/uretero w/lithotripsy completed Not Available [facility] 01/14/2020 18:09:33 06/09/20 15 Njx aa&/strd other pn/branch completed Not Available [facility] 01/14/2020 18:09:33 06/09/20 15 Biopsy of prostate completed Not Available [facility] 01/14/2020 18:09:33 10/04/19 14 colonoscopy completed Tenisha Barrios [facility] 07/13/2021 11:26:23 07/23/20 13 Njx aa&/strd other pn/branch completed Not Available [facility] 01/14/2020 18:09:33 12/19/20 13 Biopsy of prostate completed Not Available [facility] 01/14/2020 18:09:34 Explore sinus remove polyps completed Not Available [facility] 01/14/2020 18:09:33 Imaging Results None recorded. Procedure Notes None recorded. Medical Equipment None Reported. Allergies Allergen ID Allergen Name Allergen Category Reaction Reaction Severity Criticality Documentation Date Start Date Code Code System Note Provider Name and Address Organization Details Recorded Time 19641008 Biaxin medicatio n Not available Not available Not available 01/13/2020 9 RxNorm Not Available [facility] 0 23:50:31 [id number] erythromy mague medicatio n Not available Not available Not available 01/13/2020 4053 RxNorm Not Available [facility] 0 23:50:31 874799 Solu-Medr ol medicatio n Not available Not available Not available 02/01/2020 6 RxNorm Tenisha Barrios [facility] 0 08:23:00 Medications Name Sig Start Date Stop Date Status Note LastModified by Organization Details LastModified Time metformin 500 mg tablet One p.o. t.i.d. active Not Available Not Available No t Available atorvastati n 20 mg tablet Take 1 tablet every day by oral route. active Not Available Not Available No t Available atenolol 25 mg tablet Take 1 tablet twice a day by oral route. active Not Available Not Available No t Available aspirin 81 mg tablet,sosa yed release Take 1 tablet every day by oral route. active Not Available Not Available No t Available quinapril 40 mg tablet Take 1 tablet every day by oral route. active Not Available Not Available No t Available ketorolac 10 mg tablet 01/12 completed Not Available Not Available Not Available oxycodone-a cetaminophe n 5 mg-325 mg tablet 01/31 completed Not Available Not Available Not Available amlodipine 10 mg tablet Take 1 tablet every day by oral route. active Not Available Not Available No t Available hydrochloro thiazide 25 mg tablet TAKE 1/2 TABLET (12.5 MG) BY ORAL ROUTE ONCE DAILY active Not Available Not Available No t Available multivitami n capsule Take 1 capsule every day by oral route. active Not Available Not Available No t Available metformin ER 500 mg tablet,exte nded release 24 hr 1-2 tablets b.i.d. as directed 01/12 completed Not Available Not Available Not Available doxycycline hyclate 100 mg tablet 01/31 completed Not Available Not Available Not Available oxycodone 5 mg tablet 01/31 completed Not Available Not Available Not Available Fish Oil active Not Available Not Avai lable Not Available FreeStyle Lite Strips active Not Available Not Available Not Available Flublok Quad (PF) 180 mcg (45 mcg x 4)/0.5 mL IM syringe 07/13 completed Not Available Not Available Not Available Fluzone High-Dose Quad (PF) 240 mcg/0.7 mL IM syringe Inject as directed. To be administe red by maritza pharmacis sallie 07/13 completed Not Available Not Available Not Available Vitals Date Recorded Body height Body mass index (BMI) Body weight Provider Name and Address Organization Details Last Updated DateTime 01/12/2021 175.26 cm 26.6 kg/m2 18570.[address] [facility] 01/12/2021 10:40:41 Date Recorded Body weight Body mass index (BMI) Body height Provider Name and Address Organization Details Last Updated DateTime 02/01/2020 02703.63 g 26.6 kg/m2 175.[address] [facility] 02/01/2020 09:32:33 Date Recorded Body height Body mass index (BMI) Body weight Provider Name and Address Organization Details Last Updated DateTime 07/13/2021 175.26 cm 26.6 kg/m2 61409.[address] [facility] 07/13/2021 11:25:21 Date Recorded Body height Body mass index (BMI) Body weight Provider Name and Address Organization Details Last Updated DateTime 07/14/2020 175.26 cm 26.6 kg/m2 54602.63 g Tenisha Barrios [facility] 07/14/2020 10:46:08 Social History Question Answer Notes LastModified by Organizat ion Details LastModified Time Tobacco Smoking Status Former Smoker quit 06/29/[address] [facility] 07/13/2021 11:41:36 What Is Your Level Of Caffeine Consumption? Occasional [email or web address] Information not available 07/13/2021 How Much Tobacco Do You Chew? None Information not available 07/14/2020 When Did You Quit Smoking? 16+yearssincel astcigarette [email or web address] Information not available 01/12/2021 Race White Information n ot available 01/14/2020 Ethnicity Not /Latin o Information not available 02/01/2020 Preferred Language Chadian [email or web address] Information not available 01/12/2021 Recreational Drug Use No [email or web address] Information not available 02/01/2020 Marital Status Informati on not available 01/14/2020 What Was The Date Of Your Most Recent Tobacco Screening? 07/13/2021 [email or web address] Information not available 07/13/2021 What Is Your Relationship Status? [email or web address] Information not available 07/13/2021 Sex: Unknown Functional Status Question Answer Note LastModified by Organizat ion Details LastModified Time Do you or have you ever used any other forms of tobacco or nicotine? No [email or web address] Information not available 07/13/2021 What is your level of alcohol consumption? Occasional Information not available 02/01/2020 Do you or have you ever used smokeless tobacco? Never used smokeless tobacco [email or web address] Information not available 02/01/2020 Do you or have you ever used e-cigarettes or vape? Never used electronic cigarettes [email or web address] Information not available 07/14/2020 Mental Status None recorded. Family History Nothing Reported Notes:Diabetes:Uncle Cance r, breast:Daughter Liver disease:Mother Cancer, colon:Uncle Diabetes:Father Mesothelioma:Father Medical History Condition Response High Blood Pressure Y Kidney Stones Y Depression N Lung Disease N GERD/Acid Reflux N Diabetes Y Bleeding Disorder N Cancer Y High Cholesterol Y Heart Disease N Immunizations Vaccine Type Date Status Note Provider Nam e and Address Organization Details Recorded Time Influenza, adjuvanted, trivalent, PF 8 completed BEN Mitchell [facility] 07/13/2021 11:25:28 COVID-19, mRNA, LNP-S, PF, 30 mcg/0.3 mL dose 1 completed BEN Mitchell [facility] 07/13/2021 11:25:28 Influenza, split virus, trivalent, PF 1 completed Tenisha Sophie null, [facility] 07/13/2021 11:25:28 Influenza, adjuvanted, trivalent, PF 7 completed Tenisha Sophie null, [facility] 07/13/2021 11:25:28 Influenza, high-dose, quadrivalent, PF 1 completed Tenisha Sophie null, [facility] 07/13/2021 11:25:28 Tdap 8 completed Tenisha Sophie null, [facility] 07/13/2021 11:25:28 Influenza, split virus, trivalent, preservative 3 completed Tenisha Sophie null, [facility] 07/13/2021 11:25:28 COVID-19, mRNA, LNP-S, PF, 30 mcg/0.3 mL dose 1 completed Tenisha Sophie null, [facility] 07/13/2021 11:25:28 Influenza, high-dose, trivalent, PF 4 completed Tenisha Sophie null, [facility] 07/13/2021 11:25:28 Influenza, recombinant, quadrivalent, PF 9 completed Tenisha Sophie null, [facility] 07/13/2021 11:25:28 Influenza, split virus, trivalent, preservative 0 completed Tenisha Sophie null, [facility] 07/13/2021 11:25:28 Influenza, split virus, trivalent, preservative 2 completed Tenisha Sophie null, [facility] 07/13/2021 11:25:28 Influenza, high-dose, quadrivalent, PF 0 completed Tenisha Sophie null, [facility] 07/13/2021 11:25:28 Influenza, split virus, trivalent, preservative 6 completed Tenisha Sophie null, [facility] 07/13/2021 11:25:28 Novel [id number], all formulations 0 completed Tenisha Sophie null, [facility] 07/13/2021 11:25:28 Pneumococcal conjugate PCV 13 7 completed Tenisha jernigan [facility] 07/13/2021 11:25:28 pneumococcal polysaccharide PPV23 3 completed Tenisha jernigan [facility] 07/13/2021 11:25:28 Past Encounters Encounter ID Performer Location Encounter Start Date Encounter Closed Date Diagnosis/Indication Diagnosis SNOMED-CT Code Diagnosis ICD10 Code Diagnosis Note [id number] MD Mary Kim [address] [place] [address],[address] [address] 02/01/2020 09:26:56 02/01/2020 17:40:34 Malignant neoplasm of prostate 128918249 C61 cT1c, Stable. History of malignant neoplasm of prostate 227339723 Z85.46 prostate cancer [id number] MD Mary Kim [address] [place] [id number] 07/14/2020 10:22:28 07/14/2020 12:57:36 Malignant neoplasm of prostate 664796694 C61 cT1c, Stable. [id number] MD Mary Kim [address] [place] [phone] 01/12/2021 10:00:41 01/12/2021 19:11:13 Malignant neoplasm of prostate 628670648 C61 cT1c, Stable. [id number] MD Mary Kim [address] [place] [id number] 07/13/2021 10:48:41 07/14/2021 15:19:13 Malignant neoplasm of prostate 111753177 C61 cT1c, Stable. Health Concerns Section Related Observation LastModified by Organization Detai ls LastModified Time None Recorded Concern Status LastModified by Organization Details LastModified Time None Recorded Advance Directives Directive None Recorded Payers Insurance Date Sequence Insurance Name Policy Number Policy Betancourt Covered Member ID Betancourt Member ID Guarantor Name 12/07/2021 1 MEDICARE [place]: [employer] [facility] Braydon Torres [id number] Braydon Torres 12/07/2021 2 FOR LIFE ( - MEDICARE SUPPLEMENT) Braydon Torres [id number] Braydon Torres Notes Date Note Type Note Provider Name a ne Address Organization Details Recorded Time 02/01/2020 text/html I have prostate cancer. HPI: Braydon Torres is a 74 year-old male established patient who is here evaluation for treatment of prostate cancer. He had a repeat UroNav Biopsy that showed two areas of low volume, Jin 6 cancer. His daughter (a physician) of Metastatic breast cancer. His cancer was diagnosed by Dr. Campbell. His cancer was diagnosed at [facility]. His prostate cancer was diagnosed 07/23/2013. His prostate cancer was diagnosed because of psa elevated . Patient denies sheri abnormal and trus abnormal. His prostate cancer was diagnosed by a trus biopsy. His biopsy Jin grade is 3 + 3 . His biopsy Jin score 6 . His PSA at his time of diagnosis was 5.35. His ultrasound prostate weight was 82.7 grams . He had not clinical staging evaluation. His cancer clinical T stage was t1c . His most recent PSA is 6.48. Over the past 4 weeks he has had total control (1) of urine. He has leaked urine never (1). His urinary function has been a very small problem (2). He uses no pads per day (1) to control leakage. Calculated Continence Function Score: 5. Jose Campbell MD [address] [place] [address],[facility] [address], [address], [facility] 03/30/2020 16:52:16 07/14/2020 text/html I have prostate cancer. HPI: Braydon Torres is a 74 year-old male established patient who is here evaluation for treatment of prostate cancer. He had a repeat UroNav Biopsy that showed two areas of low volume, Jin 6 cancer. His daughter (a physician) of Metastatic breast cancer. His cancer was diagnosed by Dr. Campbell. His cancer was diagnosed at [facility]. His prostate cancer was diagnosed 07/23/2013. His prostate cancer was diagnosed because of psa elevated . Patient denies sheri abnormal and trus abnormal. His prostate cancer was diagnosed by a trus biopsy. His biopsy Jin grade is 3 + 3 . His biopsy Marietta score 6 . His PSA at his time of diagnosis was 5.35. His ultrasound prostate weight was 82.7 grams . He had not clinical staging evaluation. His cancer clinical T stage was t1c . His most recent PSA is 6.48. Over the past 4 weeks he has had total control (1) of urine. He has leaked urine never (1). His urinary function has been a very small problem (2). He uses no pads per day (1) to control leakage. Calculated Continence Function Score: 5. His VILLA was PI RADS 05 January 2020. Date Total PSA Free PSA % Free PSA Notes PSA6.34 11/04/2019 6.4810/03/2019 5.9 174 5.839/ 5.52 1.14 20. 5.28 1.21 22. 5.41 1.00 18. 4.48 0.99 22.23/07/2016 5.95 0.98 16. 4.649/ 4.60 0.93 20. 4.58 1.13 24.712/ 4.99 1.16 23.02/04/2014 5.33 1.27 23. 4.52 1.14 25.25/10/2013 4.24 1.04 24.511/ 5.35 1.61 30.110/06/01/2013 4.339/ 3.68 02/03/2007 3.996/ 2.90 Jose Campbell MD [address] [place] [address],[address], [place], [address], [facility] 07/14/2020 11:24:32 01/12/2021 text/html I have prostate cancer. HPI: Braydon Torres is a 75 year-old male established patient who is here evaluation for treatment of prostate cancer. He had a repeat UroNav Biopsy that showed two areas of low volume, Marietta 6 cancer. His daughter (a physician) of Metastatic breast cancer. His cancer was diagnosed by Dr. Campbell. His cancer was diagnosed at [facility]. His prostate cancer was diagnosed 07/23/2013. His prostate cancer was diagnosed because of psa elevated . Patient denies sheri abnormal and trus abnormal. His prostate cancer was diagnosed by a trus biopsy. His biopsy Marietta grade is 3 + 3 . His biopsy Jin score 6 . His PSA at his time of diagnosis was 5.35. His ultrasound prostate weight was 82.7 grams . His cancer clinical T stage was t1c . Over the past 4 weeks he has had total control (1) of urine. He has leaked urine never (1). His urinary function has been a very small problem (2). He uses no pads per day (1) to control leakage. Calculated Continence Function Score: 5. His MRI was PI RADS 05 January 2020. Date Total PSA Free PSA % Free PSA Note 01/12/2021 6.5812/11/2019 6.344 6.4810/03/2019 5.9 174 5.839/ 5.52 1.14 20. 5.28 1.21 22. 5.41 1.00 18. 4.48 0.99 22.23/07/2016 5.95 0.98 16. 4.649/ 4.60 0.93 20. 4.58 1.13 24.712/ 4.99 1.16 23.02/04/2014 5.33 1.27 23. 4.52 1.14 25.25/10/2013 4.24 1.04 24.511 5.35 1.61 30.11006/01/2013 4.339/ 3.68 02/03/2007 3.996/ 2.90 Jose Campbell MD [address] [facility],[address], [place], [address], [facility] 01/12/2021 17:58:17 07/13/2021 text/html I have prostate cancer. His initial prostate biopsy was in 2012 with a repeat in 2014. HPI: Braydon Torres is a 75 year-old male established patient who is here evaluation for treatment of prostate cancer. His prostate cancer was diagnosed 07/23/2013. He had a repeat UroNav Biopsy in 2014 that showed two areas of low volume, [place]etta 6 cancer. His daughter (a physician) of Metastatic breast cancer. His biopsy Jin grade is 3 + 3 . His biopsy Jin score 6 . His PSA at his time of diagnosis was 5.35. His MRI was PI RADS 05 January 2020. Date Total PSA Free PSA % Free PSA Note 07/13/2021 6.96, percent free 24. 6.5812/11/2019 6.344/08/2019 6.4810/03/2019 5.9 174/08/2018 5.839/ 5.52 1.14 20. 5.28 1.21 22. 5.41 1.00 18. 4.48 0.99 22.23/07/2016 5.95 0.98 16. 4.649/ 4.60 0.93 20. 4.58 1.13 24.712/ 4.99 1.16 23.02/04/2014 5.33 1.27 23. 4.52 1.14 25.25/10/2013 4.24 1.04 24.511/ 5.35 1.61 30.110/06/01/2013 4.339/ 3.68 02/03/2007 3.996/ 2.90 Jose Campbell MD [address] [place] [address],[address], [place], [address], [facility] 07/13/2021 17:08:32
--- OUTSIDE RECORDS SUMMARY | 2025-01-22 07:31 | XMS_ITS | Clinical Summary ---
Author Organization [facility] Address [address] [place] [address] Care Team Providers Care Hoist Cylinder Loader Name Role Phone Reilly Richards MD Primary Care Provider [phone] Alcon Tran MD Unavailable Allergies Active Allergy Reactions Criticality Noted Date Comments Clarithromycin 01/31/2007 Erythromycin 01/31/2007 Milk GI Upset 09/07/2019 flatulence Penicillins Itching 05/27/2014 Methylprednisolone Tremors 02/03/2007 Chills Medications MULTIPLE VITAMINS 55 PLUS TABIndications:E ssential hypertension, benign 1 tab daily 0 7 Active blood-glucose meterIndications :Type 2 diabetes mellitus without complication, without long-term current use of insulin (HC) Dispense meter, test strips, lancets covered by pt ins. 250.00 NIDDM type II - Test 1 time/day; Refills x 1 yr 1 Device 7 Active lancets (FREESTYLE LANCETS) 28 gauge miscIndications: Type 2 diabetes mellitus without complication (HC) Dispense item covered by pt ins. USE TO TEST ONCE DAILY. 100 Each 3 7 Active Vaswa-0-QAJ-EPA- Fish Oil 1,000 mg (120 mg-180 mg) cap Take 1 capsule by mouth. 0 0 Active cholecalciferol (Vitamin D) 1,000 unit capsule Take 50 mcg by mouth once daily. 0 3 Active aspirin (ECOTRIN) 81 mg enteric coated tablet Take 1 Tablet (81 mg) by mouth once daily with a meal. 4 Active metFORMIN (GLUCOPHAGE) 500 mg tabletIndication s:Type 2 diabetes mellitus without complication, without long-term current use of insulin (HC) Take 2 Tablets (1,000 mg) by mouth two times daily with meals. 360 Tablet 3 5 Active lisinopriL (PRINIVIL; ZESTRIL) 40 mg tabletIndication s:Essential hypertension Take 1 Tablet (40 mg) by mouth once daily. 90 Tablet 3 5 Active hydroCHLOROthiaz jayjay 25 mg tabletIndication s:Essential hypertension, benign Take 0.5 Tablets (12.5 mg) by mouth two times daily. 90 Tablet 3 5 Active empagliflozin (JARDIANCE) 10 mg tabletIndication s:Type 2 diabetes mellitus without complication, without long-term current use of insulin (HC) Take 1 Tablet (10 mg) by mouth once daily. Take in the morning. 90 Tablet 3 5 Active blood sugar diagnostic (FreeStyle Lite Strips) stripIndications :Type 2 diabetes mellitus without complication, without long-term current use of insulin (HC) Dispense item covered by pt ins. 250.00 NIDDM type II - Test once a day. Reason: Hypoglycemia 100 Each 3 5 Active atorvastatin (LIPITOR) 20 mg tabletIndication s:Type 2 diabetes mellitus without complication, without long-term current use of insulin (HC) Take 1 Tablet (20 mg) by mouth once daily. 90 Tablet 3 5 Active atenoloL (TENORMIN) 25 mg tabletIndication s:Essential hypertension, benign Take 1 Tablet (25 mg) by mouth two times daily. 180 Tablet 3 5 Active amLODIPine (NORVASC) 10 mg tabletIndication s:Essential hypertension, benign Take 1 Tablet (10 mg) by mouth once daily. 90 Tablet 3 5 Active polyethylene glycol-electroly te (GOLYTELY) 236-22.74-6.74 -5.86 gram suspensionIndica tions:Encounter for screening colonoscopy Drink 2 liters the day before the procedure and 2 liters 6 hours prior to procedure. 4000 mL 5 Active Active Problems Problem Noted Date Diagnosed Date Controlled type 2 diabetes m ellitus with complication, without long-term current use of insulin 09/07/2019 Other hyperlipidemia 09/10/2018 Essential hypertension 03/31/2018 WYATT 04/29/2017 AHI-8.4 05/23/2017 Type 2 diabetes mellitus wit hout complication, without long-term current use of insulin 09/13/2016 Prostate cancer 04/09/2014 Overview (04/09/2014): Diagnosed in July 2013. [place] 3+3 Stage t1c Hearing loss of both ears 04/09/2014 Overview (10/08/2014): Bilateral hearing loss and Tinnitus is service connected. Nonspecific abnormal electrocardiogram (ECG) (EK G) 02/03/2007 Overview (02/03/2007): Normal stress echo 2002; inferior &septal Q waves since 1997 Special screening for malignant neoplasm of pros kearns 02/03/2007 Benign Neoplasm of Colon 01/31/2007 Overview (01/15/2019): Colonoscopy 06/2013 polyps repeat in 5 years Colonoscopy 01/2019 normal, repeat in 5 years Allergic rhinitis, cause unspecified 01/31/2007 Resolved Problems Problem Noted Date Diagnosed Date Resolved Date Essential hypertension, benign 01/31/2007 11/22/2010 Encounters Date Type Department Care Team Description 01/22/2025 Travel 01/14/2025 9:00 AM CDT Office Visit [address] [address] Alcon Tran MD Follow Up (Yearly; Prostate CA) 01/14/2025 Travel 01/07/2025 7:30 AM CDT Orders Only [facility] [address] [facility] [place] [address] [place] Lab 01/07/2025 Travel 12/31/2024 Telephone [facility] [address] [place] [address] Jeet Merino MD Appointment 12/31/2024 Telephone [facility] [address] [place] [address] Reilly Richards MD Abnormal Lab Results 12/29/2024 7:55 AM CDT Office Visit [facility] [address] [place] [address] Reilly Richards MD Preoperative Exam (Colonoscopy 01/22/2025) 12/29/2024 Travel 11/10/2024 Orders Only [facility] Scanner 1 scan: (1-Ord) [facility], DIABETES EYE EXAM CONSULT FORM, 11/10/2024 from Last 3 Months Immunizations Immunization Administration Dates Next Due AMB INFLUENZA IIV3 (AGE 65+ YRS) PF (Flu Clinic Only) 05/08/2018 Amb Influenza, Inact (High-d ose) (Flu Clinic Only) 05/24/2014 Anthrax Vaccine 10/27/2003, 3,11/23/2002,11/03,10/01/2002 COVID-19 vaccine (Pfizer-Bio NTech 30mcg/0.3mL) 12YO+ BIVALENT PF, MDV 05/16/2022 COVID-19 vaccine (Pfizer-Bio NTech 30mcg/0.3mL) 12YO+ DIPIKA-SUCROSE PF, MDV 11/15/2021 COVID-19 vaccine (Pfizer-Bio NTech 30mcg/0.3mL) PF, MDV 05/08/2021,09/27/2020,09/06/2020 Hepatitis A (Adult) 04/20/2000,07/16/1998 Hepatitis B (Adult) 01/23/2003,06/20/2002,2001 Influenza A (H1N1), Inactiva risa (Age >=3 Years) 08/16/2009 Influenza Virus, Unspecified 05/30/2016,06/01/20 15 Influenza, High-dose Inactivated 05/22/2024,05/05 Influenza, High-dose Quadriv alent Inactivated 06/19/2023,05/08/2021,05/28/2020 Influenza, IIV3 (Age >=3 years) 06/08/20 13,06/06/2012,05/09/2011,06/05,06/08/2009,06/12/2006 Influenza, Inactivated AIIV4 (Age 65+ Years) Preserv Free 05/16/2022 Influenza, Inactivated IIV3 (Age 65+ Years) Preserv Free 04/05/2017 Influenza, Whole Virus 06/09/2002,2000,08/25/2000,05/21,04/23/1998,05/25/1997 Meningococcal Vaccine (Menomune) 08/28/2001 Oral Polio Vaccine 11/03/1965 Pneumococcal Poly,23-Valent (Pneumovax) 06/08/2013 Pneumococcal conj 13-Valent (Prevnar 13) 04/05/2017 RSV, Recombinant ADJ Reconst ituted (Arexvy 120MCG/0.5mL) 07/15/2024 Td (Age >=7 Years) 03/19/1998,03/12/1997, 988 Td, Preservative Free (age >= 7 Years) 7 Tdap 03/17/2018 Tuberculin (PPD) 05/06/2003, 2,04/25/2002,04/12 Typhoid (injectable) 12/21/2000 Typhoid (oral) 07/13/1995 Typhoid Parenteral,Killed 01/23/2003 Vaccinia, Diluted (Smallpox) 10/16/2002 Yellow Fever 05/25/2000,04/20/1990 Family History Medical History Relation Name Comments Cancer-breast Daughter 1 Asai at 47 Cancer-breast Daughter 2 Ana Good Health Daughter 3 Diabetes Father 70s Other Father of Asbesto s related lung disease - Mesothelioma at 93 Other Mother non alcoholic l iver disease - cirrhosis, at 63 Pulmonary fibrosis Mother oxygen re quiring possibly due to chemical exposure in [place] [facility] Son Cristo Relation Name Status Comments Daughter 1 Asia (Age 47) Daughter 2 Ana Alive Daughter 3 Father (Age 93) Mother (Age 63) Sister 1 Nereida Alive Sister 2 Kath Alive Son Cristo Alive Social History Tobacco Use Types Packs/Day Years Used Date Smoking Tobacco: Former Cigarettes 1 15 0 02/04/1952 - 02/03/1967 Smokeless Tobacco: Never Tobacco Cessation:Counseling Given: Not Answered Alcohol Use Standard Drinks/Week Comments Yes 0 (1 standard drink = 0.6 oz pur e alcohol) 0-3 per 1-2 months PHQ-2 Answer Date Recorded PHQ-2 TOTAL SCORE 0 08/25/2024 Social Connections Answer Date Recorded Do you often feel lonely or isolated from those around you? 0 12/29/2024 Alcohol Use Answer Date Recorded How often do you have a drink containing alcohol ? 1 08/27/2023 How many drinks containing a lcohol do you have on a typical day when you are drinking? 0 08/27/2023 How often do you have five or more drinks on one occasion? 0 08/27/2023 Financial Resource Strain Answer Date R ecorded Difficulty of Paying Living Expenses 3 12/29/2024 Difficulty of Paying Living Expenses Not on file 12/29/2024 Food Insecurity Answer Date Recorded Do you worry your food will run out before you are able to buy more? 1 12/29/2024 Transportation Needs Answer Date Record ed Does lack of transportation keep you from medica l appointments? 1 12/29/2024 Does lack of transportation keep you from work, meetings or getting things that you need? 1 12/29/2024 Housing Stability Answer Date Recorded What is your housing situation today? 1 12/29/2024 Utilities Answer Date Recorded Do you have trouble paying f or utilities (for example, heat, electricity, water, phone)? 1 12/29/2024 Sex and Gender Information Value Date Recorded Sex Assigned at Not on file Legal Sex Male 6:24 AM SHACTOR Gender Identity Not on file Sexual Orientation Not on file Occupation Industry Job Start Date Job End Date Retired Not on file Not on file Not on file Obstetrics History Last Filed Vital Signs Vital Sign Reading Time Taken Comments Blood Pressure 108/58 01/14/2025 10:24 AM CDT Pulse 51 01/14/2025 10:24 AM CDT Temperature 36.3 C (97.4 F) 12/29/2024 7:57 AM CDT Respiratory Rate 16 11/15/2022 9:47 AM CDT Oxygen Saturation 96% 12/29/2024 7:57 AM CDT Inhaled Oxygen Concentration - - Weight 79.8 kg (176 lb) 01/14/2025 10:24 AM CDT Height 172.8 cm (5' 8.03) 12/29/2024 7:57 AM CD T Body Mass Index 26.74 12/29/2024 7:57 AM CDT Plan of Treatment Upcoming Encounters Date Type Department Care Team (Late st Contact Info) Description 04/01/2025 8:15 AM CDT Orders Only [address] [place] [address] [place] 04/02/2025 9:40 AM CDT Office Visit [facility] [address] [place] [address] Reilly Richards MD [address] [place] [address] 07/16/2025 9:00 AM SHACTOR Orders Only [facility] [address] [place] [address] [place] Health Maintenance Due Date Last Done Comments Zoster (shingles) series for age 50+ (1 of 2) 1964 COVID-19 vaccine series (8 - Pfizer risk 2023- season) 2024 05/22/2024, 08/15/2023, 05/16/2022, Additional history exists Depression screening for age 12+ 08/26/2025 08/26/2024, 08/25/2024, 11/15/2022, Additional history exists Medicare Wellness for age 65+ 08/26/2025, 11/14/2022, 05/17/2021, Additional history exists BMI (ht and wt on same day) for age 18+ 12/29/2025 12/29/2024, 08/25/2024, 10/07/2023, Additional history exists Tetanus booster 03/17/2028 03/17/2018, 07/0 09/2006, 03/19/1998, Additional history exists Hepatitis B series for 19+ Completed 01/23, 06/20/2002, 04/25/2002 Pneumococcal series for age 50+ Completed 7, 06/08/2013 Tdap Completed 03/17/2018 Hepatitis C screening for ag e 18-79 Completed 05/15/2021 Influenza Vaccine Completed 05/22/2024, , 05/20/2019, Additional history exists RSV vaccine for adults or Completed 07/15/2024 Medical Devices Implanted Type Area Pillar Man Device Identifier Shelf Expiration Date Model / Serial / Lot Stent Uret [id number] Percuflex Hydroplus - [id number] Implanted:Qty: 1 on 05/29/2019 by Gino Malone MD at [facility] Left: Ureter [facility] 01/25/2022 [id number] / / [id number] Procedures Procedure Name Priority Date/Time Associated Diagnosis Comments COLONOSCOPY SCREENING Routine 01/22/2025 7:16 AM CDT Screening for colon cancer PSA TOTAL Routine 01/07/2025 7:32 AM CDT Prostate cancer (HC) URINE ALBUMIN TO CREATININE RATIO, RANDOM Routine 12/29/2024 9:33 AM CDT Type 2 diabetes mellitus without complication, without long-term current use of insulin (HC) POTASSIUM Routine 12/29/2024 9:07 AM CDT Preoperative general physical examination HEMOGLOBIN A1C Routine 12/29/2024 9:05 AM CDT Type 2 diabetes mellitus without complication, without long-term current use of insulin (HC) BASIC METABOLIC PANEL Routine 12/29/2024 9:05 AM CDT Type 2 diabetes mellitus without complication, without long-term current use of insulin (HC) LIPID PANEL W REFLEX MEASURED LDL Routine 12/29/2024 9:05 AM CDT Type 2 diabetes mellitus without complication, without long-term current use of insulin (HC) VITAMIN B12 Routine 12/29/2024 9:05 AM CDT Type 2 diabetes mellitus without complication, without long-term current use of insulin (HC) SCAN-EYE EXAM 11/10/2024 12:00 AM CDT ANTI HCV Add On 05/15/2021 7:26 AM CDT Need for hepatitis C screening test from Last 3 Months or Most Recently Relevant to Health Maintenance Results * (ABNORMAL) PSA TOTAL (DIAGNOSTIC) (01/07/2025 7:32 AM CDT) PSA, TOTAL 8.26(H) < OR = 4.00 ng/mL [facility] Comment: The total PSA value from this assay system is standardized against the WHO standard. The test result will be approximately 20% lower when compared to the equimolar-standardized total PSA (Rivka Massimo). Comparison of serial PSA results should be interpreted with this fact in mind. This test was performed using the Siemens chemiluminescent method. Values obtained from different assay methods cannot be used interchangeably. PSA levels, regardless of value, should not be interpreted as absolute evidence of the presence or absence of disease. Blood BLOOD SPECIMEN / Unknown 01/07/2025 7:32 AM CDT 01/07/2025 7:35 AM CDT Alcon Tran MD CHEMISTRY Final Result [employer] [facility] [address] [place] [address], [facility] [address] [place] [address] * URINE ALBUMIN TO CREATININE RATIO, RANDOM (12/29/2024 9:33 AM CDT) ALB RAND URINE <12.0 mg/L 12/29/2024 6:43 PM CDT [facility] CREATININE,URINE 0.92 g/L 12/30/19 6:43 PM CDT [facility] ALBUMIN TO CREATININE RATIO,RAND UR 12/29/2024 6:43 PM CDT [facility] Comment:Urine Albumin below measurement range, unable to calculate. Urine URINE SPECIMEN / Unknown Non-Blood / Unknown 12/29/2024 9:33 AM CDT 12/29/2024 9:34 AM CDT Narrative [facility] - 12/29/2024 6:43 PM CDT If Albumin to Creatinine Ratio is elevated, consider the following: Elevations seen with incipient nephropathy associated with diabetes mellitus or hypertension. Stress, exercise,hematuria, and urinary tract infection may also produce elevated results. If clinically indicated, confirm with 24 Hour Albumin to Creatinine Ratio. us Reilly Richards MD URINE Final Resu lt [facility] [address] [place] [address], [place] * POTASSIUM (12/29/2024 9:07 AM CDT) POTASSIUM 4.8 3.5 - 5.3 mmol/L [facility] Blood BLOOD SPECIMEN / Unknown 12/29/2024 9:07 AM CDT 12/29/2024 9:07 AM CDT Narrative [facility] - 12/30/2024 4:23 AM CDT FASTING:NO FASTING: NO us Reilly Richards MD CHEMISTRY Final Resu lt Performing Organization Address City/[facility]/ZIP Co de Phone Number [employer] [facility] [address] [place] [address], [facility] [address] [place] [address] * (ABNORMAL) HEMOGLOBIN A1C (12/29/2024 9:05 AM CDT) HEMOGLOBIN A1C 7.7(H) <5.7 % [facility] Comment: For someone without known diabetes, a hemoglobin A1c value of 6.5% or greater indicates that they may have diabetes and this should be confirmed with a follow-up test. For someone with known diabetes, a value <7% indicates that their diabetes is well controlled and a value greater than or equal to 7% indicates suboptimal control. A1c targets should be individualized based on duration of diabetes, age, comorbid conditions, and other considerations. Currently, no consensus exists regarding use of hemoglobin A1c for diagnosis of diabetes for children. Blood BLOOD SPECIMEN / Unknown 12/29/2024 9:05 AM CDT 12/29/2024 9:05 AM CDT Narrative [facility] - 12/30/2024 4:15 AM CDT FASTING:NO FASTING: NO us Reilly Richards MD CHEMISTRY Final Resu lt Performing Organization Address City/[facility]/ZIP Co de Phone Number [employer] [facility] [address] [place] [address], [facility] [address] [place] [address] * (ABNORMAL) LIPID PANEL W REFLEX MEASURED LDL (12/29/2024 9:05 AM CDT) [facility] Signature CHOLESTEROL, TOTAL 84 <200 mg/dL [facility] HDL CHOLESTEROL 38(L) > OR = 40 mg/dL [facility] TRIGLYCERIDES 112 <150 mg/dL [facility] LDL-CHOLESTEROL 26 mg/dL (calc) [facility] Comment: Reference range: <100 Desirable range <100 mg/dL for primary prevention; <70 mg/dL for patients with CHD or diabetic patients with > or = 2 CHD risk factors. LDL-C is now calculated using the Steven calculation, which is a validated novel method providing better accuracy than the Friedewald equation in the estimation of LDL-C. Jeet SS et al. VALORIE. 2013;310(19): 1976-7450 (http://education.Vimodi/faq/AWR441) CHOL/HDLC RATIO 2.2 <5.0 (calc) [facility] NON HDL CHOLESTEROL 46 <130 mg/dL (calc) [facility] Comment: For patients with diabetes plus 1 major ASCVD risk factor, treating to a non-HDL-C goal of <100 mg/dL (LDL-C of <70 mg/dL) is considered a therapeutic option. Blood BLOOD SPECIMEN / Unknown 12/29/2024 9:05 AM CDT 12/29/2024 9:05 AM CDT Narrative [email or web address] - 12/30/2024 4:45 AM CDT FASTING:NO FASTING: NO Reilly Richards MD CHEMISTRY Final Resu lt Performing Organization Address City/[facility]/ZIP Co de Phone Number [employer] [facility] [address] [place] [address], [facility] [address] [place] [address] * VITAMIN B12 (12/29/2024 9:05 AM CDT) [facility] VITAMIN B12 319 200 - 1,100 pg/mL [employer] [facility] Comment: Please Note: Although the reference range for vitamin B12 is 200-1100 pg/mL, it has been reported that between 5 and 10% of patients with values between 200 and 400 pg/mL may experience neuropsychiatric and hematologic abnormalities due to occult B12 deficiency; less than 1% of patients with values above 400 pg/mL will have symptoms. Blood BLOOD SPECIMEN / Unknown 12/29/2024 9:05 AM CDT 12/29/2024 9:05 AM CDT Narrative [email or web address] - 12/30/2024 5:57 AM CDT FASTING:NO FASTING: NO Reilly Richards MD CHEMISTRY Final Resu lt [employer] [facility] [address] [place] [address], [facility] [address] [place] [address] * (ABNORMAL) BASIC METABOLIC PANEL (12/29/2024 9:05 AM CDT) [facility] GLUCOSE 147(H) 65 - 99 mg/dL [employer] [facility] Comment: Fasting reference interval For someone without known diabetes, a glucose value >125 mg/dL indicates that they may have diabetes and this should be confirmed with a follow-up test. UREA NITROGEN (BUN) 37(H) 7 - 25 mg/dL [facility] CREATININE 1.11 0.70 - 1.28 mg/dL [facility] EGFR 68 > OR = 60 mL/min/1.7 3m2 [facility] BUN/CREATININE RATIO 33(H) 6 - 22 (calc) [facility] SODIUM 139 135 - 146 mmol/L [facility] POTASSIUM 4.7 3.5 - 5.3 mmol/L [facility] CHLORIDE 105 98 - 110 mmol/L [facility] CARBON DIOXIDE 26 20 - 32 mmol/L [facility] ELECTROLYTE BALANCE 8 7 - 17 mmol/L (calc) [facility] CALCIUM 9.6 8.6 - 10.3 mg/dL [facility] Blood BLOOD SPECIMEN / Unknown 12/29/2024 9:05 AM CDT 12/29/2024 9:05 AM CDT Narrative [facility] - 12/30/2024 4:45 AM CDT FASTING:NO FASTING: NO Reilly Richards MD CHEMISTRY Final Resu lt Performing Organization Address City/[facility]/ZIP Co de Phone Number [employer] [facility] [address] [place] [address], [place] [phone] [facility] [address] [place] [address] * SCAN-EYE EXAM (11/10/2024 12:00 AM CDT) Scanner OTHER Final Result * ANTI HCV [[id number]] (05/15/2021 7:26 AM CDT) HEPATITIS C ANTIBODY Non-React jessi Non-React jessi 05/17/2021 11:16 AM CDT [facility] [employer] [facility] Comment:Antibodies to HCV no t detected; does not exclude the possibility of exposure to HCV. Blood BLOOD SPECIMEN / Unknown Venipuncture / Unknown 05/15/2021 7:26 AM CDT 05/15/2021 7:28 AM CDT Reilly Richards MD SEND OUTS Final Resu lt [facility] [address] [place] [address], [place] from Last 3 Months or Most Recently Relevant to Health Maintenance Insurance MEDICARE PB ONLY [facility] [employer] [facility] MEDICARE PART B HB ONLY MEDICARE PART A HB ONLY Advance Directives Documents on File Type Date Recorded Patient Estimator Printing Expl anation Healthcare Directive 08/13/2017 018 * Full Code (Latest Code Status on File) Date Activated Date Inactivated Comments 05/29/2019 9:08 AM 05/29/2019 5:00 PM Care Teams Hoist Cylinder Loader Relationship Specialty Start Date End Date Reilly Richards MD [address] [place] [address] PCP - General 01/11/06 Alcon Tran MD [address] [facility] [address] [place] [address] Surgery - Urology 01/14/25
--- OUTSIDE RECORDS SUMMARY | 2025-01-22 07:31 | XMS_ITS | Data Portability ---
Author Organization [facility] Address [address] [place] [address] Care Team Providers Care Take Off Worker Name Role Phone JERSEY CONTRERAS Primary Care Provider Assessment Encounter Date Assessment Date Assessment LastModified by Organization Details LastModified Time 02/01/2020 02/01/2020 [id number] cancer of the prostate on observation. [...] tell his that. He will follow-up in [place] with my partner Dr. Alvarez in 6 [...] LEFT LATERAL BASE, NEEDLE BIOPSY 1. Adenocarcinoma, [place] score 6 (3+3); see note 2. Total [...] + free, serum or plasma 2020 021 [facility], [address], [place] [address], [place], [address], 1 16:22:51 PSA, total + free, serum or plasma 2020 021 [facility], [address], [address], [place], [address], 1 13:36:53 urinalysi s, dipstick 2020 021 [facility], [address], [address], [place], [address], 1 11:44:05 PSA, total + free, serum or plasma 2019 020 [email or web address], [address], [address], [place], [address], 0 18:14:21 Referral None recorded. Procedures None [...] 7.02 NG/mL 0.00-4 .00 high Not Available [facility] [address] [facility] [address], [place], [address], 02/02/2020 12:44:26 02/01/2002/01/2020 PSA, total + free, serum or plasm a free PSA 1.37 NG/mL 0.00-2 0.00 Not Available [facility] [address] [facility] [address], [place], [address], 02/02/2020 12:44:26 02/01/2002/01/2020 PSA, total + free, [...] % ----- --- 5% 9% Not Available [facility] [address] [facility] [address], [place], [address], 02/02/2020 12:44:26 07/08/20 07/08/2020 PSA, total + free, serum or plasm a PSA 6.34 high Not Available [facility]il[facility] Marin[facility] ~ Imaging Scheduling [address], [place], [address], 07/08/2020 12:54:33 01/13/20 21 01/12/2021 urina lysis , dipst ick color -advantus YELLOW yellow Not Available [facility] [address] [place] [address], [place], [address], 01/12/2021 11:44:04 01/13/20 21 01/12/2021 urina lysis , dipst ick appearance -advantus CLEAR clear Not Available [facility] [address] [place] [address] [address], [place], [address], 01/12/2021 11:44:04 01/13/20 21 01/12/2021 urina lysis , dipst ick glucose -advantus >=1000 mg/dL negati ve abnormal Not Available [facility] [address] [place] [address], [place], [address], 01/12/2021 11:44:04 01/13/20 21 01/12/2021 urina lysis , dipst ick bilirubin -advantus NEGATI VE negati ve Not Available [facility] [address] [place] [address], [place], [address], 01/12/2021 11:44:04 01/13/20 21 01/12/2021 urina lysis , dipst ick ketones -advantus TRACE mg/dL negati ve abnormal Not Available [facility] [address] [place] [address], [place], [address], 01/12/2021 11:44:04 01/13/20 21 01/12/2021 urina lysis , dipst ick sp. gravity -advantus 1.025 1.010- 1.025 Not Available [facility] [address] [place] [address] [address], [place], [address], 01/12/2021 11:44:04 01/13/20 21 01/12/2021 urina lysis , dipst ick pH -advantus 5.0 5.0-8. 0 Not Available [facility] [address] [place] [address] [address], [place], [address], 01/12/2021 11:44:04 01/13/20 21 01/12/2021 urina lysis , dipst ick protein -advantus NEGATI VE mg/dL negati ve Not Available [facility] [address] [place] [address] [address], [place], [address], 01/12/2021 11:44:04 01/13/20 21 01/12/2021 urina lysis , dipst ick urobilinogen -advantus 0.2 normal Not Available [facility] [address] [place] [address] [address], [place], [address], 01/12/2021 11:44:04 01/13/20 21 01/12/2021 urina lysis , dipst ick nitrites -advantus NEGATI VE negati ve Not Available [facility] [address] [place] [address] [address], [place], [address], 01/12/2021 11:44:04 01/13/20 21 01/12/2021 urina lysis , dipst ick blood -advantus NEGATI VE negati ve Not Available [facility] [address] [place] [address] [address], [place], [address], 01/12/2021 11:44:04 01/13/20 21 01/12/2021 urina lysis , dipst ick leukocytes -advantus NEGATI VE negati ve Not Available [facility] [address] [place] [address] [address], [place], [address], 01/12/2021 11:44:04 01/13/20 21 01/12/2021 urina lysis , dipst ick performed by Alta Ji Not Available [facility] [address] [facility] [address], [place], [address], 01/12/2021 11:44:04 01/13/2001/12/2021 stacey brown , dipst [...] ----- ----- ----- ----- ---- Not Available [facility] [address] [facility] [address], [place], [address], 01/12/2021 11:44:04 01/13/2001/12/2021 PSA, total + free, serum or plasm a PSA, total 6.58 NG/mL 0.00-4 .00 high Not Available [facility] [address] [facility] [address], [place], [address], 01/12/2021 13:36:53 01/13/2001/12/2021 PSA, total + free, serum or plasm a free PSA 1.32 NG/mL 0.00-2 0.00 Not Available [facility] [address] [facility] [address], [place], [address], 01/12/2021 13:36:53 01/13/20 21 01/12/2021 PSA, total [...] % ----- --- 5% 9% Not Available [facility] [address] [facility] [address], [place], [address], 01/12/2021 13:36:53 07/13/20 21 07/13/2021 PSA TOTAL AND FREE PSA, total 6.96 NG/mL 0.00-4 .00 high Not Available [facility] [address] [facility] [address], [place], [address], 07/13/2021 16:22:51 07/13/20 21 07/13/2021 PSA TOTAL AND FREE free PSA 1.69 NG/mL 0.00-2 0.00 Not Available [facility] [address] [facility] [address], [place], [address], 07/13/2021 16:22:51 07/13/20 21 07/13/2021 PSA TOTAL [...] % ----- --- 5% 9% Not Available [facility] [address], [place], [address], 07/13/2021 16:22:51 Result Notes None recorded. Problems Name Problem SNOMED Code Status Onset Date Resolution Date Notes Provider Name and Address Organization Details Recorded Time Clinical finding Active 2018 N20.0 : Staghorn calculus Not Available [facility] 0 23:37:55 Malignant neoplasm of prostate 213250937 Active 2014 C61 : Malignant tumor of prostate Not Available [facility] 0 23:37:55 Diabetes mellitus 70678370 Active 2020 Tenisha jernigan [facility] 1 10:43:03 Problem Notes None recorded. Procedures Surgical History Date Name Laterality Status Provider Name and Address Organization Details Recorded Time 01/13/20 21 Blood Draw/ERISA ATTORNEY/PSA RESULTS completed Alta Key [facility] 01/12/2021 11:37:55 05/29/20 19 Cysto/uretero w/lithotripsy completed Not Available [facility] 01/14/2020 18:09:33 06/09/20 15 Njx aa&/strd other pn/branch completed Not Available [facility] 01/14/2020 18:09:33 06/09/20 15 Biopsy of prostate completed Not Available [facility] 01/14/2020 18:09:33 10/04/19 14 colonoscopy completed Tenisha Barrios [facility] 07/13/2021 11:26:23 07/23/20 13 Njx aa&/strd other pn/branch completed Not Available [facility] 01/14/2020 18:09:33 12/19/20 13 Biopsy of prostate completed Not Available [facility] 01/14/2020 18:09:34 Explore sinus remove polyps completed Not Available [facility] 01/14/2020 18:09:33 Imaging Results None recorded. Procedure Notes None recorded. Medical Equipment None Reported. Allergies Allergen ID Allergen Name Allergen Category Reaction Reaction Severity Criticality Documentation Date Start Date Code Code System Note Provider Name and Address Organization Details Recorded Time 19641008 Biaxin medicatio n Not available Not available Not available 01/13/2020 9 RxNorm Not Available [facility] 0 23:50:31 806965 erythromy mague medicatio n Not available Not available Not available 01/13/2020 4053 RxNorm Not Available [facility] 0 23:50:31 966588 Solu-Medr ol medicatio n Not available Not available Not available 02/01/2020 6 RxNorm Tenisha Barrios [facility] 0 08:23:00 Medications Name Sig Start [...] Updated DateTime 01/12/2021 175.26 cm 26.6 kg/m2 61719.63 g Tenisha Barrios [facility] 01/12/2021 10:40:41 Date Recorded Body weight Body mass index (BMI) Body height Provider Name and Address Organization Details Last Updated DateTime 02/01/2020 38237.63 g 26.6 kg/m2 175.26 cm Tenisha Barrios [facility] 02/01/2020 09:32:33 Date Recorded Body height Body mass index (BMI) Body weight Provider Name and Address Organization Details Last Updated DateTime 07/13/2021 175.26 cm 26.6 kg/m2 89302.63 g Tenisha Barrios [facility] 07/13/2021 11:25:21 Date Recorded Body height Body mass index (BMI) Body weight Provider Name and Address Organization Details Last Updated DateTime 07/14/2020 175.26 cm 26.6 kg/m2 43724.63 g Tenisha Barrios [facility] 07/14/2020 10:46:08 Social History Question Answer Notes LastModified by Organizat ion Details LastModified Time Tobacco Smoking Status Former Smoker quit 06/29/75 Tenisha jernigan [facility] 07/13/2021 11:41:36 What Is Your Level Of Caffeine Consumption? Occasional [email or web address] Information not available 07/13/2021 How Much Tobacco Do You Chew? None [email or web address] Information not available 07/14/2020 When Did You Quit Smoking? 16+yearssincel astcigarette [email or web address] Information not available 01/12/2021 Race White Information n ot available 01/14/2020 Ethnicity Not /Latin o [email or web address] Information not available 02/01/2020 Preferred Language British [email or web address] Information not available 01/12/2021 Recreational Drug Use No [email or web address] Information not available 02/01/2020 Marital Status Informati on not available 01/14/2020 What Was The Date Of Your Most Recent Tobacco Screening? 07/13/2021 Information not available 07/13/2021 What Is Your Relationship Status? [email or web address] Information not available 07/13/2021 Sex: Unknown Functional Status Question Answer Note LastModified by Organizat ion Details LastModified Time Do you or have you ever used any other forms of tobacco or nicotine? No [email or web address] Information not available 07/13/2021 What is your level of alcohol consumption? Occasional [email or web address] Information not available 02/01/2020 Do you or have you ever used smokeless tobacco? Never used smokeless tobacco [email or web address] Information not available 02/01/2020 Do you or have you ever used e-cigarettes or vape? Never used electronic cigarettes [email or web address] Information not available 07/14/2020 Mental Status None [...] adjuvanted, trivalent, PF 8 completed BEN Mitchell [facility] 07/13/2021 11:25:28 COVID-19, mRNA, LNP-S, PF, 30 mcg/0.3 mL dose 1 completed BEN Mitchell [facility] 07/13/2021 11:25:28 Influenza, split virus, trivalent, PF 1 completed Tenisha Sophie null, [facility] 07/13/2021 11:25:28 Influenza, adjuvanted, trivalent, PF 7 completed Tenisha Sophie null, [facility] 07/13/2021 11:25:28 Influenza, high-dose, quadrivalent, PF 1 completed Tenisha Sophie null, [facility] 07/13/2021 11:25:28 Tdap 8 completed Tenisha Sophie null, [facility] 07/13/2021 11:25:28 Influenza, split virus, trivalent, preservative 3 completed Tenisha Sophie null, [facility] 07/13/2021 11:25:28 COVID-19, mRNA, LNP-S, PF, 30 mcg/0.3 mL dose 1 completed Tenisha Sophie null, [facility] 07/13/2021 11:25:28 Influenza, high-dose, trivalent, PF 4 completed Tenisha Sophie null, [facility] 07/13/2021 11:25:28 Influenza, recombinant, quadrivalent, PF 9 completed Tenisha Sophie null, [facility] 07/13/2021 11:25:28 Influenza, split virus, trivalent, preservative 0 completed Tenisha Sophie null, [facility] 07/13/2021 11:25:28 Influenza, split virus, trivalent, preservative 2 completed Tenisha Sophie null, [facility] 07/13/2021 11:25:28 Influenza, high-dose, quadrivalent, PF 0 completed Tenisha Sophie null, [facility] 07/13/2021 11:25:28 Influenza, split virus, trivalent, preservative 6 completed Tenisha Sophie null, [facility] 07/13/2021 11:25:28 Novel [id number], all formulations 0 completed Tenisha Sophie null, [facility] 07/13/2021 11:25:28 Pneumococcal conjugate PCV 13 7 completed Tenisha jernigan [facility] 07/13/2021 11:25:28 pneumococcal polysaccharide PPV23 3 completed Tenisha jernigan [facility] 07/13/2021 11:25:28 Past Encounters Encounter ID Performer Location Encounter Start Date Encounter Closed Date Diagnosis/Indication Diagnosis SNOMED-CT Code Diagnosis ICD10 Code Diagnosis Note [id number] MD Mary Kim [address] [place] [address],[address] [address] 02/01/2020 09:26:56 02/01/2020 17:40:34 Malignant neoplasm of prostate 219870852 C61 cT1c, Stable. History of malignant neoplasm of prostate 129641517 Z85.46 prostate cancer [id number] MD Mary Kim [address] [place] [phone] 07/14/2020 10:22:28 07/14/2020 12:57:36 Malignant neoplasm of prostate 661021092 C61 cT1c, Stable. [id number] MD Mary Kim [address] [place] [address] 01/12/2021 10:00:41 01/12/2021 19:11:13 Malignant neoplasm of prostate 596874221 C61 cT1c, Stable. [id number] MD Mary Kim [address] [place] [phone] 07/13/2021 10:48:41 07/14/2021 15:19:13 Malignant neoplasm of prostate 547754494 C61 cT1c, Stable. Health Concerns Section Related Observation LastModified by Organization Detai ls LastModified Time None Recorded Concern Status LastModified by Organization Details LastModified Time None Recorded Advance Directives Directive None Recorded Payers Insurance Date Sequence Insurance Name Policy Number Policy Betancourt Covered Member ID Betancourt Member ID Guarantor Name 12/07/2021 1 MEDICARE [place]: [employer] [facility] Braydon Torres [id number] Braydon Torres 12/07/2021 2 FOR LIFE ( - MEDICARE SUPPLEMENT) Braydon Torres [id number] Braydon Torres Notes Date Note Type Note Provider Name a ak Address Organization Details Recorded Time 02/01/2020 text/html [...] Dr. Campbell. His cancer was diagnosed at [facility]. His prostate cancer was diagnosed 07/23/2013. [...] Continence Function Score: 5. Jose Campbell MD [address] [place] [address],[facility] [address], [place], [address], [facility] 03/30/2020 16:52:16 07/14/2020 text/html I [...] Dr. Campbell. His cancer was diagnosed at [facility]. His prostate cancer was diagnosed 07/23/2013. His prostate cancer was diagnosed because of psa elevated . Patient denies sheri abnormal and trus abnormal. His prostate cancer was diagnosed by a trus biopsy. His biopsy Jin grade is 3 + 3 . His biopsy [place] score 6 . His PSA at his [...] 3.68 02/03/2007 3.996/ 2.90 Jose Campbell MD [address] [place] [address],[address], [place], [address], [facility] 07/14/2020 11:24:32 01/12/2021 text/html I have prostate cancer. HPI: Braydon Torres is a 75 year-old male established patient who is here evaluation for treatment of prostate cancer. He had a repeat UroNav Biopsy that showed two areas of low volume, [place] 6 cancer. His daughter (a physician) of Metastatic breast cancer. His cancer was diagnosed by Dr. Campbell. His cancer was diagnosed at [facility]. His prostate cancer was diagnosed 07/23/2013. His prostate cancer was diagnosed because of psa elevated . Patient denies sheri abnormal and trus abnormal. His prostate cancer was diagnosed by a trus biopsy. His biopsy [place] grade is 3 + 3 . His [...] 02/03/2007 3.996/ 2.90 Jose Campbell MD [address] [facility],[address], [place], [address], [facility] 01/12/2021 17:58:17 07/13/2021 text/html I have prostate cancer. His initial prostate biopsy was in 2012 with a repeat in 2014. HPI: Braydon Torres is a 75 year-old male established patient who is here evaluation for treatment of prostate cancer. His prostate cancer was diagnosed 07/23/2013. He had a repeat UroNav Biopsy in 2014 that showed two areas of low volume, [place] 6 cancer. His daughter (a physician) of [...] 3.68 02/03/2007 3.996/ 2.90 Jose Campbell MD [address] [place] [address],[address], [place], [address], [facility] 07/13/2021 17:08:32
--- NOTE | 2025-01-22 07:52 | P.ANES_ITS ---
Anesthesia Charges Start Date/Time Anesthesia Start Date: 01/22/25 Anesthesia Start Time: 07:19 Stop Date/Time Anesthesia Stop Date: 01/22/25 Anesthesia Stop Time: 07:49 Summary Extremes of Age - Over 70 or under 1: ELECTRIC INSTALLER Coding CPT Codes CPT Codes: ANES LWR INTST NDSC NOS - 07689 ([id number]) P3 - PATIENT W/SEVERE SYS DISEASE, QX - ELECTRIC INSTALLER SVC W/ MD MED DIRECTION, QK - WOUND NURSE 2-4 CNCRNT ANES PROC Additional Codes: Summary - Extremes of Age - Over 70 or under 1: ELECTRIC INSTALLER ([id number])
--- NOTE | 2025-01-22 07:52 | W.ANESCHARGE ---
Anesthesia Charges Start Date/Time Anesthesia Start Date: 01/22/25 Anesthesia Start Time: 07:19 Stop Date/Time Anesthesia Stop Date: 01/22/25 Anesthesia Stop Time: 07:49 Summary Extremes of Age - Over 70 or under 1: RN PACU Coding CPT Codes CPT Codes: ANES LWR INTST NDSC NOS - 29794 ([id number]) P3 - PATIENT W/SEVERE SYS DISEASE, QX - RN PACU SVC W/ MD MED DIRECTION, QK - HEARING OFFICER 2-4 CNCRNT ANES PROC Additional Codes: Summary - Extremes of Age - Over 70 or under 1: RN PACU ([id number])
--- NOTE | 2025-01-22 07:58 | P.ANES_ITS ---
Anesthesia Charges Start Date/Time Anesthesia Start Date: 01/22/25 Anesthesia Start Time: 07:19 Stop Date/Time Anesthesia Stop Date: 01/22/25 Anesthesia Stop Time: 07:49 Summary Extremes of Age - Over 70 or under 1: MDA Coding CPT Codes CPT Codes: ANES LWR INTST NDSC NOS - 90074 ([id number]) P3 - PATIENT W/SEVERE SYS DISEASE, QK - STRIP MACHINE OPERATOR 2-4 CNCRNT ANES PROC, QX - VESSEL MANAGER SVC W/ MD MED DIRECTION Additional Codes: Summary - Extremes of Age - Over 70 or under 1: MDA ([id number])
--- NOTE | 2025-01-22 07:58 | W.ANESCHARGE ---
Anesthesia Charges Start Date/Time Anesthesia Start Date: 01/22/25 Anesthesia Start Time: 07:19 Stop Date/Time Anesthesia Stop Date: 01/22/25 Anesthesia Stop Time: 07:49 Summary Extremes of Age - Over 70 or under 1: MDA Coding CPT Codes CPT Codes: ANES LWR INTST NDSC NOS - 33703 ([id number]) P3 - PATIENT W/SEVERE SYS DISEASE, QK - LIFE ENRICHMENT MANAGER 2-4 CNCRNT ANES PROC, QX - GROUND WORKER SVC W/ MD MED DIRECTION Additional Codes: Summary - Extremes of Age - Over 70 or under 1: MDA ([id number])
--- OUTSIDE RECORDS SUMMARY | 2025-01-23 00:47 | XMS_ITS | Clinical Summary ---
Author Organization [facility] Address [address] [place] [id number] Care Team Providers Care Duty Officer Name Role Phone Reilly Richards MD Primary Care Provider [phone] Alcon Tran MD Unavailable [phone] Allergies Active Allergy Reactions Criticality Noted Date [...] ONCE DAILY. 100 Each 3 7 Active Mytzx-8-INV-EPA- Fish Oil 1,000 mg (120 mg-180 mg) [...] 04/09/2014 Overview (04/09/2014): Diagnosed in July 2013. Calvin 3+3 Stage t1c Hearing loss of both [...] Date Type Department Care Team Description 01/22/2025 6:30 AM CDT Office Visit [facility] [address] [place] [address] Jeet Merino MD Arrived 01/22/2025 Travel 01/14/2025 9:00 AM CDT Office Visit [facility] [address] [place] [address] Alcon Tran MD Follow Up (Yearly; Prostate CA) 01/14/2025 Travel 01/07/2025 7:30 AM CDT Orders Only [facility] [address] [place] [address] [place], [place] 01/07/2025 Travel 12/31/2024 Telephone [facility] [address] [place] [address] Jeet Merino MD Appointment 12/31/2024 Telephone [facility] [address] [place] [address] Reilly Richards MD Abnormal Lab Results 12/29/2024 7:55 AM CDT Office Visit [facility] [address] [place] [address] Reilly Richards MD Preoperative Exam (Colonoscopy 01/22/2025) 12/29/2024 Travel 11/10/2024 Orders Only [facility] Scanner 1 scan: (1-Ord) [facility], DIABETES EYE EXAM [...] History Relation Name Comments Cancer-breast Daughter 1 [place] at 47 Cancer-breast Daughter 2 Ana Good [...] on file 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 Gender Identity Not on file Sexual Orientation [...] Description 04/01/2025 8:15 AM CDT Orders Only [facility] [address] [place] [address] [address] [place] 04/02/2025 9:40 AM CDT Office Visit [facility] [address] [place] [address] Reilly Richards MD [address] [place] [address] 07/16/2025 9:00 AM 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 Orders Only [facility] [address] [place] [address] [place] Health Maintenance Due Date Last [...] Completed 07/15/2024 Medical Devices Implanted Type Area Fabricator Special Items Device Identifier Shelf Expiration Date Model / Serial / Lot Stent Uret [id number] Percuflex Hydroplus - [id number] Implanted:Qty: 1 on 05/29/2019 by Gino Malone MD at [facility] Left: Ureter [facility] [place] [place] U[facility] 01/25/2022 [id number] / / [id number] Procedures Procedure Name Priority Date/Time Associated Diagnosis [...] TOTAL 8.26(H) < OR = 4.00 ng/mL [facility] [employer] [facility] saranya Menon Comment: The total PSA value from this assay system is standardized against the WHO standard. The test result will be approximately 20% lower when compared to the equimolar-standardized total PSA (Rivka Corozal). Comparison of serial PSA results should be [...] CDT Alcon Tran MD CHEMISTRY Final Result [facility] [address] [place] [address], [facility] [address] [place] [phone] * URINE ALBUMIN TO CREATININE RATIO, RANDOM (12/29/2024 9:33 AM CDT) ALB RAND URINE <12.0 mg/L 12/29/2024 6:43 PM CDT [facility] CREATININE,URINE 0.92 g/L 12/30/19 6:43 PM CDT [facility] ALBUMIN TO CREATININE RATIO,RAND UR 12/29/2024 6:43 PM CDT [facility] Comment:Urine Albumin below measurement range, unable to calculate. Urine URINE SPECIMEN / Unknown Non-Blood / Unknown 12/29/2024 9:33 AM CDT 12/29/2024 9:34 AM CDT Narrative [facility] - 12/29/2024 6:43 PM CDT If Albumin to Creatinine Ratio is elevated, consider the following: Elevations seen with incipient nephropathy associated with diabetes mellitus or hypertension. Stress, exercise,hematuria, and urinary tract infection may also produce elevated results. If clinically indicated, confirm with 24 Hour Albumin to Creatinine Ratio. us Reilly Richards MD URINE Final Resu lt [facility] [address] [place] [address], [place] * POTASSIUM (12/29/2024 9:07 AM CDT) POTASSIUM 4.8 3.5 - 5.3 mmol/L [facility] Blood BLOOD SPECIMEN / Unknown 12/29/2024 9:07 AM CDT 12/29/2024 9:07 AM CDT Narrative [facility] - 12/30/2024 4:23 AM CDT FASTING:NO FASTING: NO us Reilly Richards MD CHEMISTRY Final Resu lt Performing Organization Address [facility] Co de Phone Number [facility] [address] [place] [address], [facility] [address] [place] [address] * (ABNORMAL) HEMOGLOBIN A1C (12/29/2024 9:05 AM CDT) HEMOGLOBIN A1C 7.7(H) <5.7 % [facility] Comment: For someone without known diabetes, a [...] AM CDT 12/29/2024 9:05 AM CDT Narrative [facility] - 12/30/2024 4:15 AM CDT FASTING:NO FASTING: NO us Reilly Richards MD CHEMISTRY Final Resu lt [facility] [address] [place] [address], [facility] [address] [place] [address] * (ABNORMAL) LIPID PANEL W REFLEX MEASURED LDL (12/29/2024 9:05 AM CDT) CHOLESTEROL, TOTAL 84 <200 mg/dL [facility] HDL CHOLESTEROL 38(L) > OR = 40 mg/dL [facility] TRIGLYCERIDES 112 <150 mg/dL [facility] LDL-CHOLESTEROL 26 mg/dL (calc) [facility] Comment: Reference range: <100 Desirable range <100 mg/dL for primary prevention; <70 mg/dL for patients with CHD or diabetic patients with > or = 2 CHD risk factors. LDL-C is now calculated using the Jeet-Sujata calculation, which is a validated novel method providing better accuracy than the Friedewald equation in the estimation of LDL-C. Jeet GOMEZ et al. VALORIE. 2013;310(19): 3408-1671 (http://education.S[employer]ioL[employer].Vizsafe/faq/FMW373) CHOL/HDLC RATIO 2.2 <5.0 (calc) [facility] NON HDL CHOLESTEROL 46 <130 mg/dL (calc) [facility] Comment: For patients with diabetes plus 1 major ASCVD risk factor, treating to a non-HDL-C goal of <100 mg/dL (LDL-C of <70 mg/dL) is considered a therapeutic option. Blood BLOOD SPECIMEN / Unknown 12/29/2024 9:05 AM CDT 12/29/2024 9:05 AM CDT Narrative [facility] - 12/30/2024 4:45 AM CDT FASTING:NO FASTING: NO Reilly Richards MD CHEMISTRY Final Resu lt Performing Organization Address [facility]/ZIP Co de Phone Number [facility] [address] [address], [facility] [address] [place] [address] * VITAMIN B12 (12/29/2024 9:05 AM CDT) Pathologist [facility] VITAMIN B12 319 200 - 1,100 pg/mL [facility] Comment: Please Note: Although the reference range [...] AM CDT 12/29/2024 9:05 AM CDT Narrative [facility] - 12/30/2024 5:57 AM CDT FASTING:NO FASTING: NO Reilly Richards MD CHEMISTRY Final Resu lt Performing Organization Address [facility] Co de Phone Number [facility] [address] [place] [address], [facility] [address] [place] [phone] * (ABNORMAL) BASIC METABOLIC PANEL (12/29/2024 9:05 AM CDT) Pathologist [facility] GLUCOSE 147(H) 65 - 99 mg/dL [employer] Comment: Fasting reference interval For someone without known diabetes, a glucose value >125 mg/dL indicates that they may have diabetes and this should be confirmed with a follow-up test. UREA NITROGEN (BUN) 37(H) 7 - 25 mg/dL [facility] CREATININE 1.11 0.70 - 1.28 mg/dL [facility] EGFR 68 > OR = 60 mL/min/1.7 3m2 [facility] BUN/CREATININE RATIO 33(H) 6 - 22 (calc) [facility] SODIUM 139 135 - 146 [...] Reilly Richards MD CHEMISTRY Final Resu lt [facility] [address] [place] [address], [facility] [employer] [facility] [phone] * SCAN-EYE EXAM (11/10/2024 12:00 AM CDT) us Scanner OTHER Final Result * ANTI HCV [77516.2] (05/15/2021 7:26 AM CDT) HEPATITIS C ANTIBODY Non-React jessi Non-React jessi 05/17/2021 11:16 AM CDT [facility] Comment:Antibodies to HCV no t detected; does not exclude the possibility of exposure to HCV. Blood BLOOD SPECIMEN / Unknown Venipuncture / Unknown 05/15/2021 7:26 AM CDT 05/15/2021 7:28 AM CDT us Reilly Richards MD SEND OUTS Final Resu lt [facility] 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
== END 2025-01-22 06:22 | disposition home or self-care (01) ==
LOC: OP CLINIC 06:27
PROVIDERS: PCP Family Medicine; Visit Provider Internal Medicine Gastroenterology
DX: Z12.11 Encounter for screening for malignant neoplasm of colon (principal); Z86.0101 Personal history of adenomatous and serrated colon polyps; D12.2 Benign neoplasm of ascending colon
CPT/HCPCS: 00811; 45385; 88305; 99100; J2704